=== PATIENT | female | born 1970 | race Caucasian/White ===

== ENCOUNTER → 2017-10-26 | Outpatient (CLI) | payer OTHER ==
--- NOTE | 2017-10-26 10:24 | Diagnostic Imaging Report ---
INDICATION: Routine screening. COMPARISON: 10/17/2015 and 10/11/2014. TECHNIQUE: Screening digital mammography was performed bilaterally with a Computer Aided Detection (CAD) system. FINDINGS: Both breasts are heterogeneously dense, limiting the sensitivity of mammography. No dominant mass or malignant appearing microcalcifications are seen. There is an intramammary lymph node in the upper outer left breast. The axillae are unremarkable. IMPRESSION: No mammographic features suspicious for malignancy are identified. ACR BI-RADS Category 2: Benign findings. Result letter will be mailed to the patient. Note: At least 10% of breast cancer is not imaged by mammography. Dictated by: Dictated on workstation # [id number]
== END ==
LOC: RAD 08:28
PROVIDERS: ATTEND Nurse Practitioner Family
DX: Z12.31 Encounter for screening mammogram for malignant neoplasm of breast (principal)
CPT/HCPCS: 77067

== ENCOUNTER → 2017-11-02 | Outpatient (CLI) | payer OTHER | LOC: LAB 07:00 | PROVIDERS: ATTEND Nurse Practitioner Family | DX: R94.6 Abnormal results of thyroid function studies (principal) | CPT/HCPCS: 36415; 84439 ==

== ENCOUNTER → 2018-03-04 | Outpatient (CLI) | payer OTHER ==
[2018-03-04 08:48] LABS: FREE T4 (FREE THYROXINE) 1.06 NG/DL (0.70-1.48)
== END ==
LOC: LAB 07:54
PROVIDERS: ATTEND Nurse Practitioner Family
DX: R94.6 Abnormal results of thyroid function studies (principal)
CPT/HCPCS: 36415; 84439; 84443

== ENCOUNTER → 2018-06-30 | Outpatient (CLI) | payer OTHER ==
[2018-06-30 07:45] LABS: FREE T4 (FREE THYROXINE) 0.99 NG/DL (0.70-1.48)
== END ==
LOC: LAB 07:01
PROVIDERS: ATTEND Nurse Practitioner Family
DX: E03.9 Hypothyroidism, unspecified (principal)
CPT/HCPCS: 36415; 84439; 84443

== ENCOUNTER → 2018-10-12 | Outpatient (CLI) | payer OTHER ==
[2018-10-12 11:27] LABS: FREE T4 (FREE THYROXINE) 1.25 NG/DL (0.70-1.48)
== END ==
LOC: LAB 10:36
PROVIDERS: ATTEND Nurse Practitioner Family
DX: E03.9 Hypothyroidism, unspecified (principal)
CPT/HCPCS: 36415; 84439; 84443

== ENCOUNTER → 2018-10-27 | Outpatient (CLI) | payer OTHER ==
--- NOTE | 2018-10-27 12:16 | Diagnostic Imaging Report ---
EXAMINATION: Digital mammogram bilateral screening with 3D tomosynthesis and cad. This study was compared to the prior exam of 10/26/2017, 10/17/2015 and 10/11/14. At this time there are no current complaints. The current study was also evaluated with a Computer Aided Detection (CAD) system. FINDINGS: The fibroglandular tissue in both breasts is heterogeneously dense. This does limit the sensitivity of this exam. Overall, there does not appear to have been any significant change when compared to the prior study. No primary or secondary sign of malignancy is noted. IMPRESSION: There is no radiographic evidence for malignancy. ACR BI-RADS Category 1: Negative. Result letter will be mailed to the patient. Note: At least 10% of breast cancer is not imaged by mammography. Dictated by: Dictated on workstation # [id number]
== END ==
LOC: RAD 07:57
PROVIDERS: ATTEND Nurse Practitioner Family
DX: Z12.31 Encounter for screening mammogram for malignant neoplasm of breast (principal)
CPT/HCPCS: 77067

== ENCOUNTER → 2019-06-20 | Outpatient (CLI) | payer OTHER ==
[~2019-06-20] MED LIST: AMLO5TAB9 PO; FAMO-119 PO; LEVO88TA54 PO; LISI-552 PO; METO-387 PO; METR-145 PO; NORG1TAB15 PO; OMEP20TA7 PO; Promethazine/Codeine PO; VANC50SO PO
[2019-06-20 08:52] LABS: BASOPHILS % (AUTO) 0 % (0-10); EOSINOPHILS # (AUTO) 0.2 10^3/uL (0.0-0.3); EOSINOPHILS % (AUTO) 2 % (0-10); HEMATOCRIT 39 % (35-52); HEMOGLOBIN 12.9 G/DL (11.5-16.0); LYMPHOCYTES # (AUTO) 2.9 X 10^3 (1.0-4.0); LYMPHOCYTES % (AUTO) 23 % (12-44); MEAN CORPUSCULAR HEMOGLOBIN 28 PG (25-34); MEAN CORPUSCULAR HGB CONC 33 G/DL (32-36); MEAN CORPUSCULAR VOLUME 85 FL (80-99); MEAN PLATELET VOLUME 10.7 FL (7.4-10.4); MONOCYTES # (AUTO) 0.7 X 10^3 (0.0-1.0); MONOCYTES % (AUTO) 5 % (0-12); NEUTROPHILS # (AUTO) 8.6 X 10^3 (1.8-7.8); NEUTROPHILS % (AUTO) 69 % (42-75); PLATELET COUNT 280 10^3/uL (130-400); RED CELL DISTRIBUTION WIDTH 13.4 % (10.0-14.5); WHITE BLOOD COUNT 12.3 10^3/uL (4.3-11.0)
[2019-06-20 09:22] LABS: ALANINE AMINOTRANSFERASE 25 U/L (0-55); ALBUMIN 4.5 GM/DL (3.2-4.5); ALKALINE PHOSPHATASE 107 U/L (40-136); BILIRUBIN,TOTAL 0.4 MG/DL (0.1-1.0); BUN/CREATININE RATIO 17; CALCIUM 10.7 MG/DL (8.5-10.1); CARBON DIOXIDE 25 MMOL/L (21-32); CHLORIDE 102 MMOL/L (98-107); CREATININE SERUM 0.78 MG/DL (0.60-1.30); GFR ESTIMATED > 60; GLUCOSE 87 MG/DL (70-105); POTASSIUM 3.8 MMOL/L (3.6-5.0); SODIUM 135 MMOL/L (135-145); TOTAL PROTEIN 7.7 GM/DL (6.4-8.2)
[2019-06-20 09:33] LABS: BAND NEUTROPHILS 2 %; BASOPHILS % (MANUAL) 0 %; EOSINOPHILS % (MANUAL) 2 %; LYMPHOCYTES % (MANUAL) 23 %; MONOCYTES % (MANUAL) 5 %; NEUTROPHILS % (MANUAL) 68 %; RBC MORPH NORMAL
[2019-06-20 09:43] LABS: FREE T4 (FREE THYROXINE) 0.89 NG/DL (0.70-1.48)
== END ==
LOC: LAB 08:41
PROVIDERS: ATTEND Nurse Practitioner Family
DX: E03.9 Hypothyroidism, unspecified (principal); I10 Essential (primary) hypertension; R51 Headache
CPT/HCPCS: 36415; 80053; 84439; 84443; 85007; 85027

== ENCOUNTER 2019-06-27 00:15 | Inpatient (IN) | payer OTHER ==
[~2019-06-27] VITALS: Ht 154.9 cm; Wt 75.0 kg
[2019-06-27] MEDS ORDERED: NS IV 1000 ML 1,000 ML IV SCH (00:31)
[2019-06-27] MEDS ORDERED: NS IV 500 ML 500 ML IV ONE (00:31)
--- NOTE | 2019-06-27 00:31 | ED Abdominal Pain ---
General Chief Complaint: Abdominal/GI Problems Stated Complaint: ABDOMINAL PAIN Source of Information: Patient, Spouse Exam Limitations: No Limitations History of Present Illness Date Seen by Provider: Jun 27, 2019 Time Seen by Provider: 00:19 Initial Comments Patient presents to ER by private conveyance with chief complaint last week having some mild abdominal discomfort occasional nausea but no fevers chills sweats. She began to experience some loose stools tonight after taking some laxatives because it had been 2 days since she had a bowel movement which is not unusual for her. She had a loose stool earlier in the week times one. She started having vomiting and worse pain in her life which she rates as a 6 out of 10 mid abdominal and periumbilical. Earlier in the week she had high blood pressure and felt like she had some mid back pain like a UTI so she went to Dr. Torres's office and had a urinalysis and labs performed. She said the urinalysis did not demonstrate any blood or signs of infection. Her labs are okay but they did bump her Synthroid up and also noted her calcium was marysol inally elevated. They elected to repeat it in 2 weeks. For the past 24 hours while on duty she was using Tylenol and ibuprofen to treat her abdominal pain and was successful. She's had no appetite. Her last oral intake was at 0 400 yesterday. She denies any fevers. She's had no abdominal trauma or surgeries. No other significant medical history other than she just started lisinopril earlier this week and the Synthroid. She uses Tri-Sprintec and has not missed any doses except for tonight. Allergies and Home Medications Allergies Coded Allergies: No Known Drug Allergies (Unverified , 06/27/19) Patient Home Medication List Home Medication List Reviewed: Yes Review of Systems Review of Systems Constitutional: No chills, No diaphoresis, No fever EENTM: No Blurred Vision, No Double Vision Respiratory: Denies Cough, Denies Shortness of Air Cardiovascular: Denies Chest Pain, Denies Lightheadedness, Denies Palpitations, Denies Syncope Gastrointestinal: See HPI, Abdomen Distended, Abdominal Pain; Denies Constipated; Diarrhea, Nausea, Poor Appetite, Poor Fluid Intake, Vomiting Genitourinary: Denies Burning, Denies Discharge, Denies Pain Musculoskeletal: see HPI, back pain; No joint pain Skin: No pruritus, No rash Psychiatric/Neurological: Denies Headache, Denies Numbness, Denies Paresthesia All Other Systems Reviewed Negative Unless Noted: Yes Past Mcaqitx-Imjlfq-Bhxoud Hx Patient Social History Alcohol Use: Occasionally Uses Alcohol Beverage of Choice: Beer Recreational Drug Use: No Smoking Status: Never a Smoker Recent Foreign Travel: No Contact w/Someone Who Travel: No Physical Exam Vital Signs Vital Signs - First Documented 06/27/19 00:20 Temp 36.0 Pulse 129 Resp 22 B/P (MAP) 139/108 (118) Pulse Ox 98 O2 Delivery Room Air Capillary Refill : Height/Weight/BMI Height: '" Weight: lbs. oz. kg; BMI Method: General Appearance: WD/WN, moderate distress (pained expression) HEENT: PERRL/EOMI, normal ENT inspection, pharynx normal Neck: full range of motion, normal inspection Respiratory: no respiratory distress, no accessory muscle use Cardiovascular: normal peripheral pulses, regular rate, rhythm, no edema, tachycardia Peripheral Pulses: 2+ Dorsalis Pedis (R), 2+ Left Dors-Pedis (L) Gastrointestinal: normal bowel sounds (quiescent), soft, distended (mildly); No guarding, No rebound; tenderness (epigastric), other (mildly tender all over. Negative for Rovsing sign but positive for mesenteric signs heel tap; negative for Iqbal sign or rebound tenderness over McBurney's point.) Extremities: normal range of motion, normal capillary refill Neurologic/Psychiatric: alert, oriented x 3 Skin: normal color, warm/dry Focused Exam Lactate Level 06/27/19 00:25: Lactic Acid Level 1.10 Lactic Acid Level Laboratory Tests Test 06/27/19 00:25 Lactic Acid Level 1.10 MMOL/L (0.50-2.00) Progress/Results/Core Measures Results/Orders Lab Results Laboratory Tests Test 06/27/19 00:25 06/27/19 01:25 Range/Units White Blood Count 22.6 H 4.3-11.0 10^3/uL Red Blood Count 5.69 4.35-5.85 10^6/uL Hemoglobin 16.2 #H 11.5-16.0 G/DL Hematocrit 49 35-52 % Mean Corpuscular Volume 86 80-99 FL Mean Corpuscular Hemoglobin 28 25-34 PG Mean Corpuscular Hemoglobin Concent 33 32-36 G/DL Red Cell Distribution Width 12.8 10.0-14.5 % Platelet Count 398 130-400 10^3/uL Mean Platelet Volume 10.8 H 7.4-10.4 FL Neutrophils (%) (Auto) 79 H 42-75 % Lymphocytes (%) (Auto) 14 12-44 % Monocytes (%) (Auto) 5 0-12 % Eosinophils (%) (Auto) 1 0-10 % Basophils (%) (Auto) 0 0-10 % Neutrophils # (Auto) 17.9 H 1.8-7.8 X 10^3 Lymphocytes # (Auto) 3.1 1.0-4.0 X 10^3 Monocytes # (Auto) 1.2 H 0.0-1.0 X 10^3 Eosinophils # (Auto) 0.2 0.0-0.3 10^3/uL Basophils # (Auto) 0.1 0.0-0.1 10^3/uL Neutrophils % (Manual) 78 % Lymphocytes % (Manual) 15 % Monocytes % (Manual) 4 % Band Neutrophils 3 % Microcytosis MODERATE Prothrombin Time 12.6 12.2-14.7 SEC INR Comment 0.9 0.8-1.4 Activated Partial Thromboplast Time 28 24-35 SEC Sodium Level 134 L 135-145 MMOL/L Potassium Level 4.8 3.6-5.0 MMOL/L Chloride Level 96 L 98-107 MMOL/L Carbon Dioxide Level 24 21-32 MMOL/L Anion Gap 14 5-14 MMOL/L Blood Urea Nitrogen 12 7-18 MG/DL Creatinine 0.82 0.60-1.30 MG/DL Estimat Glomerular Filtration Rate > 60 BUN/Creatinine Ratio 15 Glucose Level 119 H 70-105 MG/DL Lactic Acid Level 1.10 0.50-2.00 MMOL/L Calcium Level 9.4 8.5-10.1 MG/DL Corrected Calcium 9.2 8.5-10.1 MG/DL Total Bilirubin 0.3 0.1-1.0 MG/DL Aspartate Amino Transf (AST/SGOT) 22 5-34 U/L Alanine Aminotransferase (ALT/SGPT) 30 0-55 U/L Alkaline Phosphatase 115 40-136 U/L Troponin I < 0.30 <0.30 NG/ML Total Protein 7.8 6.4-8.2 GM/DL Albumin 4.3 3.2-4.5 GM/DL Lipase 19 8-78 U/L Serum Test, Qualitative NEGATIVE NEGATIVE Urine Color YELLOW Urine Clarity SLIGHTLY CLOUDY Urine pH 5.5 5-9 Urine Specific [place] 1.010 L 1.016-1.022 Urine Protein NEGATIVE NEGATIVE Urine Glucose (UA) NEGATIVE NEGATIVE Urine Ketones 1+ H NEGATIVE Urine Nitrite NEGATIVE NEGATIVE Urine Bilirubin 1+ H NEGATIVE Urine Urobilinogen 0.2 < = 1.0 MG/DL Urine Leukocyte Esterase NEGATIVE NEGATIVE Urine RBC (Auto) NEGATIVE NEGATIVE Urine RBC NONE /HPF Urine WBC 5-10 H /HPF Urine Squamous Epithelial Cells >50 H /HPF Urine Crystals NONE /LPF Urine Bacteria FEW H /HPF Urine Casts NONE /LPF Urine Mucus NEGATIVE /LPF Urine Culture Indicated NO My Orders Orders - CAM KOHLER Cbc With Automated Diff (06/27/19 00:31) Comprehensive Metabolic Panel (06/27/19:31) Blood Culture (06/27/19:31) Urinalysis (06/27/19:) Urine Culture (06/27/19:31) Protime With Inr (06/27/19:31) Partial Thromboplastin Time (06/27/19:31) Chest 1 View Ap/Pa Only (06/27/19:31) Ed Iv/Invasive Line Start (06/27/19:31) Ed Iv/Invasive Line Start (06/27/19:31) Ekg Tracing (06/27/19:31) Vital Signs Adult Sepsis Patie Q15M (06/27/19 00:31) Ondansetron Injection (Zofran Injectio (06/27/19 00:45) O2 (06/27/19:31) Remove Rings In Anticipation O (06/27/19:31) Lactic Acid Analyzer (06/27/19:31) Ns Iv 1000 Ml (Sodium Chloride 0.9%) (06/27/19:31) Ceftriaxone For Iv Use (Rocephin For I (06/27/19 00:45) Lipase (06/27/19 00:31) Metronidazole 500mg/100ml Ivpb (Flagyl 5 (06/27/19 00:45) Ed Iv/Invasive Line Start (06/27/19 00:31) Ns Iv 500 Ml (Sodium Chloride 0.9%) (06/27/19 00:31) Troponin I Fs (06/27/19 00:31) Ketorolac Injection (Toradol Injection) (06/27/19 00:45) Pantoprazole Injection (Protonix Injecti (06/27/19 00:45) Hcg,Qualitative Serum (06/27/19 00:34) Ct Abd/Pelv W (Appendicitis) (06/27/19 00:34) Manual Differential (06/27/19 00:25) Fentanyl Injection (Sublimaze Injection (06/27/19 01:00) Iohexol Injection (Omnipaque 350 Mg/Ml 1 (06/27/19 01:00) Received Contrast (Hold Metformin- Contr (06/27/19 01:00) Sodium Chloride Flush (Catheter Flush Sy (06/27/19 01:00) Ns (Ivpb) (Sodium Chloride 0.9% Ivpb Bag (06/27/19 01:00) Fentanyl Injection (Sublimaze Injection (06/27/19 01:00) Medications Given in ED Current Medications Medications Dose Ordered Sig/Elroy Route Start Time Stop Time Status Last Admin Dose Admin Ceftriaxone Sodium 1000 mg/ Sterile Water 10 ml @ 200 mls/hr ONCE ONCE IV 06/27/19 00:45 06/27/19 00:47 DC 06/27/19 00:54 200 MLS/HR Fentanyl Citrate 25 mcg ONCE ONCE IVP 06/27/19 01:00 06/27/19 01:02 DC 06/27/19 00:50 25 MCG Iohexol 100 ml ONCE ONCE IV 06/27/19 01:00 06/27/19 01:01 DC 06/27/19 01:12 100 ML Ketorolac Tromethamine 30 mg ONCE ONCE IVP 06/27/19 00:45 06/27/19 00:46 DC 06/27/19 00:40 30 MG Metronidazole 100 ml @ 100 mls/hr ONCE ONCE IV 06/27/19 00:45 06/27/19 01:44 DC 06/27/19 00:54 100 MLS/HR Ondansetron HCl 8 mg PRN PRN IV 06/27/19 00:45 06/27/19 00:45 DC 06/27/19 00:40 8 MG Pantoprazole 40 mg ONCE ONCE IV 06/27/19 00:45 06/27/19 00:46 DC 06/27/19 00:45 40 MG Sodium Chloride 10 ml NEEDED PRN IV 06/27/19 01:00 06/27/19 01:12 10 ML Sodium Chloride 100 ml ONCE ONCE IV 06/27/19 01:00 06/27/19 01:01 DC 06/27/19 01:12 80 ML Sodium Chloride 500 ml @ 0 mls/hr Q0M ONCE IV 06/27/19 00:31 06/27/19 00:34 DC 06/27/19 02:11 999 MLS/HR Vital Signs/I&O 06/27/19 00:20 Temp 36.0 Pulse 129 Resp 22 B/P (MAP) 139/108 (118) Pulse Ox 98 O2 Delivery Room Air Progress Progress Note : Time: 00:37 Progress Note Gastroenteritis and colitis viral versus bacterial, gastritis, pancreatitis, pyelonephritis, cholecystitis, retroflexed appendicitis, bowel obstruction etc. Zofran and Toradol initially for pain. 20 mL/kg fluid bolus of 1500 cc. Septic workup to include chest x-ray, urine and labs. Patient rates the pain 6 out of 10 but also notes among the worst pain she's ever had. Suspect she is being stoic. Less likely atypical angina given her pain is reproducible to direct palpation of the epigastrium however an EKG and troponin is warranted. Initial ECG Impression Date: Jun 27, 2019 Initial ECG Impression Time: 00:36 Initial ECG Rate: 113 Initial ECG Rhythm: S.Tach Initial ECG Intervals: Normal Initial ECG Impression: Normal Initial ECG Comparisson: No Previous ECG Available Comment Normal sinus rhythm, tachycardia. Negative for clinically relevant ST elevation or depression. Diagnostic Imaging Diagonstic Imaging: CT (with IV contrast) Plain Films/CT/US/NM/MRI: abdomen, pelvis Comments Findings to be from inflammatory infectious enteritis and differential includes Crohn's disease. Small amount of ascites. Reviewed: Reviewed [place] Study, Reviewed by Me Diagonstic Imaging: Xray Plain Films/CT/US/NM/MRI: chest (1v) Comments No acute cardiopulmonary processes noted on 1 view cxr. Reviewed: Reviewed by Me Departure Communication (Admissions) Time/Spoke to Admitting Phy: 03:00 Discussed the case lab imaging findings and the antibiotic selection's with Dr. Templeton and he agrees to admit the patient with consult general surgery in the morning. He agrees with floor placement. Impression Primary Impression: Enteritis, bacterial Additional Impression: Sepsis Qualified Codes: A41.9 - Sepsis, unspecified organism Disposition: ADMITTED INPATIENT Condition: Stable Admissions Decision to Admit Reason: Admit from ER (General) Decision to Admit/Date: Jun 27, 2019 Time/Decision to Admit Time: 02:00 Departure-Patient Inst. Referrals: ANDREA TORRES MD (PCP/Family) Primary Care Physician CAM KOHLER Jun 27, 2019 00:30 POS
[2019-06-27 00:43] LABS: HEMATOCRIT 49 % (35-52); HEMOGLOBIN 16.2 G/DL (11.5-16.0); MEAN CORPUSCULAR HEMOGLOBIN 28 PG (25-34); MEAN CORPUSCULAR HGB CONC 33 G/DL (32-36); MEAN CORPUSCULAR VOLUME 86 FL (80-99); MEAN PLATELET VOLUME 10.8 FL (7.4-10.4); NEUTROPHILS % (AUTO) 79 % (42-75); PLATELET COUNT 398 10^3/uL (130-400); RED CELL DISTRIBUTION WIDTH 12.8 % (10.0-14.5); WHITE BLOOD COUNT 22.6 10^3/uL (4.3-11.0)
[2019-06-27 00:44] LABS: BASOPHILS # (AUTO) 0.1 10^3/uL (0.0-0.1); BASOPHILS % (AUTO) 0 % (0-10); EOSINOPHILS # (AUTO) 0.2 10^3/uL (0.0-0.3); EOSINOPHILS % (AUTO) 1 % (0-10); LYMPHOCYTES # (AUTO) 3.1 X 10^3 (1.0-4.0); LYMPHOCYTES % (AUTO) 14 % (12-44); MONOCYTES # (AUTO) 1.2 X 10^3 (0.0-1.0); MONOCYTES % (AUTO) 5 % (0-12); NEUTROPHILS # (AUTO) 17.9 X 10^3 (1.8-7.8)
[2019-06-27] MEDS ORDERED: PANTOPRAZOLE 40 MG (PROTONIX) VIAL IV ONE (00:45)
[2019-06-27] MEDS ORDERED: metroNIDAZOLE 500MG/100ML IVPB 100 ML IV ONE (00:45)
[2019-06-27] MEDS ORDERED: cefTRIAXone FOR IV USE 1,000 MG in WATER (STERILE) FOR INJECTION 10 ML IV ONE (00:45)
[2019-06-27] MEDS ORDERED: ONDANSETRON 4 MG/2 ML (SDV) Z0FRAN IV PRN ×2 (00:45→05:45)
[2019-06-27] MEDS ORDERED: KETOROLAC 30 MG/ML VIAL IVP ONE (00:45)
[2019-06-27] MEDS: fentaNYL INJECTION 100 MCG/2 ML AMP IVP ONE ×2 (00:50→01:03)
[2019-06-27 00:54] LABS: INR 0.9 (0.8-1.4); PROTHROMBIN TIME PATIENT 12.6 SEC (12.2-14.7)
[2019-06-27 00:55] LABS: ALANINE AMINOTRANSFERASE 30 U/L (0-55); ALBUMIN 4.3 GM/DL (3.2-4.5); ALKALINE PHOSPHATASE 115 U/L (40-136); BILIRUBIN,TOTAL 0.3 MG/DL (0.1-1.0); BUN/CREATININE RATIO 15; CALCIUM 9.4 MG/DL (8.5-10.1); CARBON DIOXIDE 24 MMOL/L (21-32); CHLORIDE 96 MMOL/L (98-107); CREATININE SERUM 0.82 MG/DL (0.60-1.30); GFR ESTIMATED > 60; GLUCOSE 119 MG/DL (70-105); LIPASE 19 U/L (8-78); POTASSIUM 4.8 MMOL/L (3.6-5.0); SODIUM 134 MMOL/L (135-145); TOTAL PROTEIN 7.8 GM/DL (6.4-8.2)
[2019-06-27] MEDS ORDERED: CATHETER FLUSH 10 ML SYR IV PRN (01:00)
[2019-06-27] MEDS ORDERED: fentaNYL INJECTION 100 MCG/2 ML AMP IVP ONE (01:00)
[2019-06-27] MEDS ORDERED: IOHEXOL 350 MG/ML 100 ML (OMNIPAQUE 350) VIAL IV ONE (01:00)
[2019-06-27] MEDS ORDERED: HOLD METFORMIN - RECEIVED CONTRAST 20 ML VIAL IV SCH (01:00)
[2019-06-27] MEDS ORDERED: NS 100 ML (IVPB) BAG IV ONE (01:00)
[2019-06-27 01:09] LABS: BAND NEUTROPHILS 3 %; LYMPHOCYTES % (MANUAL) 15 %; MICROCYTOSIS MODERATE; MONOCYTES % (MANUAL) 4 %; NEUTROPHILS % (MANUAL) 78 %
[2019-06-27 01:39] LABS: BACTERIA,URINE FEW /HPF; CLARITY,URINE SLIGHTLY CLOUDY; COLOR,URINE YELLOW; GLUCOSE, URINE (UA) NEGATIVE (NEGATIVE); KETONES,URINE 1+ (NEGATIVE); LEUKOCYTE ESTERASE ,URINE NEGATIVE (NEGATIVE); NITRITE,URINE NEGATIVE (NEGATIVE); PH,URINE 5.5 (5-9); PROTEIN,URINE NEGATIVE (NEGATIVE); SQUAMOUS EPITHELIAL CELL,UR >50 /HPF
[2019-06-27 01:40] LABS: BILIRUBIN,URINE 1+ (NEGATIVE)
[2019-06-27 04:20] VITALS: BP 122/80
[2019-06-27 04:21] VITALS: BP 122/80
[2019-06-27] MEDS ORDERED: NS IV 1000 ML 1,000 ML ONE (04:30)
[2019-06-27] MEDS ORDERED: KETOROLAC 15 MG/ML VIAL IV PRN (05:45)
[2019-06-27] MEDS ORDERED: fentaNYL INJECTION 100 MCG/2 ML AMP IV PRN ×2 (05:45)
[2019-06-27] MEDS ORDERED: ACETAMINOPHEN 650 MG SUPP (TYLENOL) PR PRN (05:45)
--- NOTE | 2019-06-27 06:31 | Diagnostic Imaging Report ---
INDICATION: Fever, leukocytosis COMPARISON: None FINDINGS: Single view of the chest demonstrates clear lungs bilaterally. The heart is normal. There is no pneumothorax. Osseous structures are normal. IMPRESSION: Negative chest Dictated by: Dictated on workstation # [id number]
--- NOTE | 2019-06-27 06:42 | Diagnostic Imaging Report ---
PROCEDURE: CT abdomen and pelvis with contrast, rule out appendicitis. TECHNIQUE: Multiple contiguous axial images were obtained through the abdomen and pelvis after the administration of intravenous contrast. INDICATION: Abdominal pain. COMPARISON: None. FINDINGS: There are multiple small bowel loops scattered throughout the abdomen which display a thick wall and inflammatory change. There is mild diffuse abdominal ascites. No overt bowel obstruction or free air is identified. There is no abscess. The appendix is normal. The colon is unremarkable. Gallbladder, solid organs, lung bases, vascular structures, reproductive organs and urinary bladder are unremarkable. There is no lymphadenopathy. Nonspecific distention of bilateral uterine venous system is present. Osseous structures are age-appropriate. IMPRESSION: 1. Abnormal thickening of multiple loops of small bowel concerning for inflammatory bowel disease. Infectious etiology not excluded. 2. Mild diffuse abdominal ascites. 3. Normal appendix. Agree with preliminary report. Dictated by: Dictated on workstation # [id number]
[2019-06-27] MEDS: NS IV 1000 ML 1,000 ML IV SCH ×3 (06:53→20:12)
[2019-06-27] MEDS: metroNIDAZOLE 500 MG/100 ML IVPB (PRE-MIX) IV SCH ×3 (06:56→22:34)
--- NOTE | 2019-06-27 07:23 | Consultation - Surgery ---
SABRINA MORENO,MED STUDENT 06/27/19 0723: History of Present Illness History of Present Illness Patient Consulted On(marcial/time) 06/27/19 07:11 Date Seen by Provider: Jun 27, 2019 Time Seen by Provider: 06:50 History of Present Illness Patient is a 49y/o female that presented to the ER with worsening abdominal pain. Pain has been intermittent for the past week but became constant and sharp starting yesterday around 1600. Pain was described as sharp and crampy over her entire abdomen and flanks, and rated as 7/10. Right now, patient says that her pain is 2/10 but is made worse with activity. Patient also mentioned that she has had diarrhea for the past week that started at the same time as the abdominal pain. Her last menstrual cycle was reported to be about 2wks ago and described as regular, prior menstrual cycles were also described as regular. Allergies and Home Medications Allergies Coded Allergies: No Known Drug Allergies (Unverified , 06/27/19) Home Medications Levothyroxine Sodium 88 Mcg Tablet, 88 MCG PO DAILY, (Reported) Lisinopril 20 Mg Tablet, 20 MG PO DAILY, (Reported) Norgestimate-Ethinyl Estradiol 1 Each Tablet, 1 TAB PO DAILY, (Reported) Past Nocxqcz-Azdlbc-Plhjuc Hx Patient Social History Alcohol Use: Occasionally Uses Number of Drinks Today: AA Recreational Drug Use: No Smoking Status: Former Smoker Former Smoker, Quit: Jul 19, 2008 Type Used: Cigarettes Recent Foreign Travel: No Contact w/Someone Who Travel: No Recent Infectious Disease Expo: No Physical Abuse Screen: No Sexual Abuse: No Immunizations Up To Date Date of Influenza Vaccine: Apr 27, 2019 Seasonal Allergies Seasonal Allergies: No Surgeries History of Surgeries: No Respiratory History of Respiratory Disorde: No Cardiovascular History of Cardiac Disorders: Yes Cardiac Disorders: Hypertension (diagnosised early this week ) Neurological History of Neurological Disord: No Genitourinary History of Genitourinary Disor: No Gastrointestinal History of Gastrointestinal Di: No Musculoskeletal History of Musculoskeletal Dis: No Endocrine History of Endocrine Disorders: Yes Endocrine Disorders: Hypothyroidsim HEENT History of HEENT Disorders: No Cancer History of Cancer: No Psychosocial History of Psychiatric Problem: No Integumentary History of Skin or Integumenta: No Family Medical History Family Medial History: Hypercholesterolemia 19 FATHER 19 MOTHER Hypertension 19 FATHER 19 MOTHER Neoplasm 19 FATHER (melanoma ) Respiratory disorder 19 MOTHER (COPD emphysema ) Review of Systems-General Constitutional: No chills, No dizziness, No fever; malaise Respiratory: cough (for >2wks), phlegm, wheezing Cardiovascular: No chest pain, No edema, No Hx of Intervention Gastrointestinal: abdominal pain (generalized); No constipation; diarrhea, nausea; No vomiting Genitourinary: No decreased output, No discharge, No dysuria : No LMP: Jun 15, 2019 Physical Exam-General Problems Physical Exam Vital Signs Vital Signs - First Documented 06/27/19 00:20 Temp 36.0 Pulse 129 Resp 22 B/P (MAP) 139/108 (118) Pulse Ox 98 O2 Delivery Room Air Capillary Refill : Less Than 3 Seconds General Appearance: WD/WN, no apparent distress Eyes: Bilateral Eye PERRL, Bilateral Eye EOMI Neck: non-tender, supple Respiratory: chest non-tender, lungs clear, normal breath sounds, no resp iratory distress, no accessory muscle use Cardiovascular: regular rate, rhythm, no edema, no murmur Peripheral Pulses: 2+ Dorsalis Pedis (R), 2+ Left Dors-Pedis (L), 2+ Radial Pulses (R), 2+ Radial Pulses (L) Gastrointestinal: soft, no pulsatile mass, guarding, tenderness (Left worse then right ) Extremities: no pedal edema, no calf tenderness, normal capillary refill Neurologic/Psychiatric: alert, normal mood/affect, oriented x 3 Skin: normal color, warm/dry Data Review Labs Laboratory Tests 06/27/19 00:25: White Blood Count 22.6H, Red Blood Count 5.69, Hemoglobin 16.2#H, Hematocrit 49, Mean Corpuscular Volume 86, Mean Corpuscular Hemoglobin 28, Mean Corpuscular Hemoglobin Concent 33, Red Cell Distribution Width 12.8, Platelet Count 398, Mean Platelet Volume 10.8H, Neutrophils (%) (Auto) 79H, Lymphocytes (%) (Auto) 14, Monocytes (%) (Auto) 5, Eosinophils (%) (Auto) 1, Basophils (%) (Auto) 0, Neutrophils # (Auto) 17.9H, Lymphocytes # (Auto) 3.1, Monocytes # (Auto) 1.2H, Eosinophils # (Auto) 0.2, Basophils # (Auto) 0.1, Neutrophils % (Manual) 78, Lymphocytes % (Manual) 15, Monocytes % (Manual) 4, Band Neutrophils 3, Microcytosis MODERATE, Prothrombin Time 12.6, INR Comment 0.9, Activated Partial Thromboplast Time 28, Sodium Level 134L, Potassium Level 4.8, Chloride Level 96L , Carbon Dioxide Level 24, Anion Gap 14, Blood Urea Nitrogen 12, Creatinine 0.82, Estimat Glomerular Filtration Rate > 60, BUN/Creatinine Ratio 15, Glucose Level 119H, Lactic Acid Level 1.10, Calcium Level 9.4, Corrected Calcium 9.2, Total Bilirubin 0.3, Aspartate Amino Transf (AST/SGOT) 22, Alanine Aminotransferase (ALT/SGPT) 30, Alkaline Phosphatase 115, Troponin I < 0.30, Total Protein 7.8, Albumin 4.3, Lipase 19, Serum Test, Qualitative NEGATIVE 06/27/19 01:25: Urine Color YELLOW, Urine Clarity SLIGHTLY CLOUDY, Urine pH 5.5, Urine Specific [place] 1.010L, Urine Protein NEGATIVE, Urine Glucose (UA) NEGATIVE, Urine Ketones 1+H, Urine Nitrite NEGATIVE, Urine Bilirubin 1+H, Urine Urobilinogen 0.2, Urine Leukocyte Esterase NEGATIVE, Urine RBC (Auto) NEGATIVE, Urine RBC NONE, Urine WBC 5-10H, Urine Squamous Epithelial Cells >50H, Urine Crystals NONE, Urine Bacteria FEWH, Urine Casts NONE, Urine Mucus NEGATIVE, Urine Culture Indicated NO Assessment/Plan Assessment/Plan Assessment/Plan Abdominal pain leukocytosis elevated hbg CT of abdomen shows signs of inflammatory bowel disease and mild ascites but no signs of appendicitis, consider doing and EGD and colonoscopy in an outpatient setting. Continue Rocephin and metronidazole and IVF fluids. Patient's hemoglobin is elevated, but likely d/t to dehydration, will continue to monitor. Will continue to monitor and follow patient while in hospital Clinical Quality Measures DVT/VTE Risk/Contraindication: Risk Factor Score Per Nursin RFS Level Per Nursing on Admit: 4+=Very High VINCE MENDOZA DO 06/27/19 1174: History of Present Illness History of Present Illness Time Seen by Provider: 15:06 History of Present Illness Surgery asked to consult regarding Abdominal pain and possible enteritis. When I spoke to the pt this afternoon she stated that she had some abdominal pain last Thursday (8 days ago) which was gone on Thursday but then she had really bad diarrhea start after eating out for lunche (had a salad). Diarrhea every day but only had one episode yesterday and nothing so far today. She has never had any pain like this before. She denied any hematochezia or melena, did not get stool studies as an outpt. Allergies and Home Medications Allergies Coded Allergies: No Known Drug Allergies (Unverified , 06/27/19) Home Medications Levothyroxine Sodium 88 Mcg Tablet, 88 MCG PO DAILY, (Reported) Lisinopril 20 Mg Tablet, 20 MG PO DAILY, (Reported) Norgestimate-Ethinyl Estradiol 1 Each Tablet, 1 TAB PO DAILY, (Reported) Patient Home Medication List Home Medication List Reviewed: Yes Past Xeylbah-Dlcaow-Vmovhw Hx Surgeries History of Surgeries: No Respiratory History of Respiratory Disorde: No Cardiovascular History of Cardiac Disorders: Yes Neurological History of Neurological Disord: No Reproductive System : No Genitourinary History of Genitourinary Disor: No Gastrointestinal History of Gastrointestinal Di: No Musculoskeletal History of Musculoskeletal Dis: No Endocrine History of Endocrine Disorders: Yes HEENT History of HEENT Disorders: No Loss of Vision: Denies Hearing Impairment: Denies Cancer History of Cancer: No Psychosocial History of Psychiatric Problem: No Family Medical History Significant Family History: Cancer, Hypertension Family Medial History: Hypercholesterolemia 19 FATHER 19 MOTHER Hypertension 19 FATHER 19 MOTHER Neoplasm 19 FATHER (melanoma ) Respiratory disorder 19 MOTHER (COPD emphysema ) Review of Systems-General EENTM: No blurred vision, No double vision, No mouth pain, No mouth swelling, No epistaxis Musculoskeletal: No back pain, No joint pain, No muscle stiffness Skin: No change in color, No change in hair/nails Psychiatric/Neurological: Denies Anxiety, Denies Depressed, Denies Seizure, Denies Tremors Other pt denies any hx of abnormal bleeding or bruising Physical Exam-General Problems Physical Exam HEENT: pharynx normal; No scleral icterus (R), No scleral icterus (L) Gastrointestinal: soft, no organomegaly, no pulsatile mass; No guarding; tenderness (Left worse then right ) Back: no CVA tenderness, no vertebral tenderness Lymphatic: no adenopathy (neck, axilla or groin) Assessment/Plan Assessment/Plan Assessment/Plan Enteritis Diarrhea Pt had elevated WBC that came down with fluids and CT showed large area of small intestine that was thickened with some minimal inflammation around the intestine. I believe this is most likely going to be a Viral Gastroenteritis, but need to try and rule out bacterial with stool culture. Unable to visualize this area with either EGD or Colonoscopy; however, if celiac or an IBD need to be ruled out these can be done as an outpt. I agree pt should be kept one more day to treat with IV fluids and control any other symptoms she has. Supervisory-Addendum Brief Verification & Attestation Participated in pt care: history, MDM, physical Personally performed: exam, history, MDM Care discussed with: Medical Student Procedures: n/a Verification and Attestation of Medical Student E/M Service A medical student performed and documented this service in my presence. I reviewed and verified all information documented by the medical student and made modifications to such information, when appropriate. I personally performed the physical exam and medical decision making. Vince Mendoza, Jun 27, 2019,17:32 SABRINA MORENO,MED STUDENT Jun 27, 2019 07:23 VINCE WEI DO Jun 27, 2019 17:27 POS
[2019-06-27 08:17] VITALS: BP 103/70
[2019-06-27] MEDS: PANTOPRAZOLE 40 MG (PROTONIX) VIAL IV SCH (08:24)
[2019-06-27] MEDS ORDERED: LISI-552 PO (08:36)
[2019-06-27] MEDS ORDERED: NORG1TAB15 PO (08:36)
[2019-06-27] MEDS ORDERED: LEVO88TA54 PO (08:36)
--- NOTE | 2019-06-27 08:39 | History & Physical ---
History of Present Illness History of Present Illness Reason for visit/HPI PT IS A 49 Y/O FEMALE WHO IS KNOWN TO ME FROM CLINIC. SHE HAS REPORTED ABOUT A WEEK OF INTERMITTENT ABDOMINAL PAIN AND ISSUES WITH NORMALCY OF BOWEL MOVEMENT. SHE REPORTS THAT SHE STARTED TO HAVE DIARRHEA EARLIER IN THE WEEK AND IT WAS BECOMING PROGRESSIVELY WORSE AND THEN SHE HAD SEVERE ABDOMINAL PAIN, NAUSEA, DIARRHEA AND SHE PRESENTED TO THE HOSPITAL DUE TO THE ESCALATION OF HER ABDOM INAL PAIN. SHE WAS FOUND TO HAVE ACUTE LEUKOCYTOSIS WITH INFLAMMATION OF HER BOWEL AND WAS THEREFORE ADMITTED TO THE HOSPITAL FOR IV ANTIBIOTICS, IV FLUIDS AND MONITORING OF SYMPTOMS WITH CONSULTATION TO GENERAL SURGERY. Date of Admission Jun 27, 2019 at 03:07 Date Seen by a Provider: Jun 27, 2019 Time Seen by a Provider: 09:00 I consulted on this patient on 06/27/19 0900 Attending Physician ANDREA TORRES MD Admitting Physician Andrea Torres MD Consult GENERAL SURGERY Allergies and Home Medications Allergies Coded Allergies: No Known Drug Allergies (Unverified , 06/27/19) Home Medications Levothyroxine Sodium 88 Mcg Tablet, 88 MCG PO DAILY, (Reported) Lisinopril 20 Mg Tablet, 20 MG PO DAILY, (Reported) Norgestimate-Ethinyl Estradiol 1 Each Tablet, 1 TAB PO DAILY, (Reported) Patient Home Medication List Home Medication List Reviewed: Yes Past Uuxwhdw-Nvjdig-Kywgjf Hx Past Med/Social Hx: Reviewed Nursing Past Med/Soc Hx, Reviewed and Corrections made Patient Social History Marrital Status: Living Status: LIVES IN HOUSE WITH FAMILY 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[employer]) Alcohol Use: Occasionally Uses Number of Drinks Today: AA Alcohol Beverage of Choice: Beer Recreational Drug Use: No Smoking Status: Former Smoker Former Smoker, Quit: Jul 19, 2008 Type Used: Cigarettes 2nd Hand Smoke Exposure: No Physical Abuse Screen: No Sexual Abuse: No Recent Foreign Travel: No Contact w/other who traveled: No Recent Hopitalizations: No Recent Infectious Disease Expo: No Immunizations Up To Date Date of Influenza Vaccine: Apr 27, 2019 Seasonal Allergies Seasonal Allergies: No Past Medical History Currently Using CPAP: No Currently Using BIPAP: No Cardiac: Hypertension (diagnosised early this week ) : No Reproductive: No Sexually Transmitted Disease: No HIV/AIDS: No Female Reproductive Disorders: Denies Gastrointestinal: Chronic Constipation (INTERMITTENT) Endocrine: Hypothyroidsim Are Your Blood Sugars Over 250: No Loss of Vision: Denies Hearing Impairment: Denies Psychosocial: Anxiety, Depression History of Blood Disorders: No Adverse Reaction to Blood Pérez: No Family History Reviewed Nursing Family Hx Hypercholesterolemia 19 FATHER 19 MOTHER Hypertension 19 FATHER 19 MOTHER Neoplasm 19 FATHER (melanoma ) Respiratory disorder 19 MOTHER (COPD emphysema ) Cancer, COPD, Hypertension, Other Conditions/Hx Review of Systems Constitutional: No chills, No fever; malaise, weakness EENTM: No hoarseness, No throat pain Respiratory: No cough, No dyspnea on exertion, No short of breath Cardiovascular: No chest pain, No palpitations Gastrointestinal: RUQ, LUQ, RLQ, LLQ, abdominal pain, diarrhea, nausea Genitourinary: no symptoms reported : No Musculoskeletal: No back pain, No muscle weakness Skin: no symptoms reported Psychiatric/Neurological: Denies Anxiety, Denies Depressed, Denies Weakness All Other Systems Reviewed Negative Unless Noted: Yes Physical Exam Vital Signs Vital Signs - First Documented 06/27/19 00:20 Temp 36.0 Pulse 129 Resp 22 B/P (MAP) 139/108 (118) Pulse Ox 98 O2 Delivery Room Air Capillary Refill : Less Than 3 Seconds Height, Weight, BMI Height: '" Weight: lbs. oz. kg; 31.25 BMI Method: General Appearance: WD/WN, Mild Distress (WHEN LYING ON BACK WITH ABD BEING PALPATED) Eyes: Bilateral Eye Normal Inspection, Bilateral Eye PERRL, Bilateral Eye EOMI HEENT: PERRL/EOMI, Pharynx Normal Neck: Full Range of Motion, Non Tender, Supple Respiratory: Chest Non Tender, Lungs Clear, Normal Breath Sounds, No Accessory Muscle Use, No Respiratory Distress Cardiovascular: Regular Rate, Rhythm, No Edema, Normal Peripheral Pulses Gastrointestinal: No Pulsatile Mass, Soft, Tenderness (DIFFUSELY), Other (HYPERACTIVE BOWEL SOUNDS) Rectal: Deferred Back: Normal Inspection, No CVA Tenderness, No Vertebral Tenderness Extremity: Normal Capillary Refill, Normal Range of Motion, Non Tender, No Calf Tenderness, No Pedal Edema Neurologic/Psychiatric: Alert, Oriented x3, No Motor/Sensory Deficits, Normal Mood/Affect, seed tester II-XII Norm as Tested Skin: Normal Color, Warm/Dry Lymphatic: No Adenopathy Assessment/Plan Assessment and Plan ABDOMINAL PAIN DIARRHEA NAUSEA INFECTIOUS VERSUS INFLAMMATORY BOWEL DISEASE LEUKOCYTOSIS HYPERTENSION ABDOMINAL PAIN WITH INFECTIOUS VERSUS INFLAMMATORY BOWEL DISEASE - CT SCAN RESULTS FOLLOWS: IMPRESSION: 1. Abnormal thickening of multiple loops of small bowel concerning for inflammatory bowel disease. Infectious etiology not excluded. 2. Mild diffuse abdominal ascites. 3. Normal appendix. - CONTINUE WITH IV ANTIBIOTICS - WILL ALLOW PT TO HAVE ICE CHIPS FOR SUPPER - APPRECIATE SURGICAL CONSULT. - ANTICIPATE PT WILL NEED COLONOSCOPY AN OUTPATIENT - PREFERABLY IN JULY 2019. LEUKOCYTOSIS - REPEAT LABS IN THE MORNING - CONTINUE WITH IV ANTIBIOTICS HYPERTENSION - BP STABLE RIGHT NOW, WILL MONITOR PRESSURES AND IF NEEDED WILL RESTART LISINOPRIL Admission Diagnosis ABDOMINAL PAIN DIARRHEA NAUSEA INFECTIOUS VERSUS INFLAMMATORY BOWEL DISEASE LEUKOCYTOSIS HYPERTENSION Admission Status: Inpatient Order (span 2 midnights) Reason for Inpatient Admission: INPATIENT ADMISSION FOR ENTERITIS, ABDOMINAL PAIN, NAUSEA, LEUKOCYTOSIS - AND WILL NEED IV FLUIDS AND ANTIBIOTICS. Clinical Quality Measures DVT/VTE Risk/Contraindication: Risk Factor Score Per Nursin RFS Level Per Nursing on Admit: 4+=Very High ANDREA TORRES MD Jun 27, 2019 08:39 POS
[2019-06-27 12:05] LABS: BASOPHILS % (AUTO) 0 % (0-10); EOSINOPHILS # (AUTO) 0.2 10^3/uL (0.0-0.3); EOSINOPHILS % (AUTO) 2 % (0-10); HEMATOCRIT 36 % (35-52); HEMOGLOBIN 11.7 G/DL (11.5-16.0); LYMPHOCYTES # (AUTO) 2.4 X 10^3 (1.0-4.0); LYMPHOCYTES % (AUTO) 22 % (12-44); MEAN CORPUSCULAR HEMOGLOBIN 28 PG (25-34); MEAN CORPUSCULAR HGB CONC 33 G/DL (32-36); MEAN CORPUSCULAR VOLUME 85 FL (80-99); MEAN PLATELET VOLUME 10.5 FL (7.4-10.4); MONOCYTES # (AUTO) 0.9 X 10^3 (0.0-1.0); MONOCYTES % (AUTO) 9 % (0-12); NEUTROPHILS # (AUTO) 7.1 X 10^3 (1.8-7.8); NEUTROPHILS % (AUTO) 67 % (42-75); PLATELET COUNT 287 10^3/uL (130-400); RED CELL DISTRIBUTION WIDTH 13.3 % (10.0-14.5); WHITE BLOOD COUNT 10.6 10^3/uL (4.3-11.0)
[2019-06-27 12:21] VITALS: BP 113/97
[2019-06-27 12:26] LABS: ALANINE AMINOTRANSFERASE 24 U/L (0-55); ALBUMIN 3.5 GM/DL (3.2-4.5); ALKALINE PHOSPHATASE 78 U/L (40-136); BILIRUBIN,TOTAL 0.3 MG/DL (0.1-1.0); BUN/CREATININE RATIO 13; CALCIUM 7.6 MG/DL (8.5-10.1); CARBON DIOXIDE 22 MMOL/L (21-32); CHLORIDE 108 MMOL/L (98-107); CREATININE SERUM 0.79 MG/DL (0.60-1.30); GFR ESTIMATED > 60; GLUCOSE 77 MG/DL (70-105); POTASSIUM 4.3 MMOL/L (3.6-5.0); SODIUM 138 MMOL/L (135-145); TOTAL PROTEIN 5.8 GM/DL (6.4-8.2)
[2019-06-27 16:19] VITALS: BP 121/81
[2019-06-27] MEDS ORDERED: cefTRIAXone 1,000 MG/SWFI 10 ML IV PUSH IV SCH ×2 (21:00)
[2019-06-27 21:02] VITALS: BP 146/90
[2019-06-28 00:18] VITALS: BP 126/82
[2019-06-28] MEDS: NS IV 1000 ML 1,000 ML IV SCH (03:36)
[2019-06-28 03:37] LABS: BASOPHILS % (AUTO) 0 % (0-10); EOSINOPHILS # (AUTO) 0.2 10^3/uL (0.0-0.3); EOSINOPHILS % (AUTO) 2 % (0-10); HEMATOCRIT 36 % (35-52); HEMOGLOBIN 11.7 G/DL (11.5-16.0); LYMPHOCYTES # (AUTO) 2.5 X 10^3 (1.0-4.0); LYMPHOCYTES % (AUTO) 25 % (12-44); MEAN CORPUSCULAR HEMOGLOBIN 28 PG (25-34); MEAN CORPUSCULAR HGB CONC 33 G/DL (32-36); MEAN CORPUSCULAR VOLUME 86 FL (80-99); MEAN PLATELET VOLUME 10.9 FL (7.4-10.4); MONOCYTES # (AUTO) 0.6 X 10^3 (0.0-1.0); MONOCYTES % (AUTO) 6 % (0-12); NEUTROPHILS # (AUTO) 6.9 X 10^3 (1.8-7.8); NEUTROPHILS % (AUTO) 68 % (42-75); PLATELET COUNT 261 10^3/uL (130-400); RED CELL DISTRIBUTION WIDTH 12.7 % (10.0-14.5); WHITE BLOOD COUNT 10.2 10^3/uL (4.3-11.0)
[2019-06-28 03:54] LABS: ALANINE AMINOTRANSFERASE 27 U/L (0-55); ALBUMIN 3.6 GM/DL (3.2-4.5); ALKALINE PHOSPHATASE 87 U/L (40-136); BILIRUBIN,TOTAL 0.2 MG/DL (0.1-1.0); BUN/CREATININE RATIO 10; CALCIUM 7.6 MG/DL (8.5-10.1); CARBON DIOXIDE 17 MMOL/L (21-32); CHLORIDE 107 MMOL/L (98-107); CREATININE SERUM 0.63 MG/DL (0.60-1.30); GFR ESTIMATED > 60; POTASSIUM 3.9 MMOL/L (3.6-5.0); SODIUM 137 MMOL/L (135-145); TOTAL PROTEIN 6.1 GM/DL (6.4-8.2)
[2019-06-28 03:55] LABS: GLUCOSE 59 MG/DL (70-105)
[2019-06-28 04:00] VITALS: BP 142/90
[2019-06-28] MEDS ORDERED: DEXTROSE 50% 50 ML (IMS) SYR ONE (04:03)
[2019-06-28] MEDS ORDERED: DEXTROSE 50% 50 ML (IMS) SYR IV ONE (04:15)
[2019-06-28] MEDS: metroNIDAZOLE 500 MG/100 ML IVPB (PRE-MIX) IV SCH (06:02)
--- NOTE | 2019-06-28 07:20 | NUR ---
CALLED DR. HUSSEIN AND INFORMED HER THAT PATIENT'S BLOOD SUGAR WAS 59 WITH MORNING LABS AND THAT UNDER HYPOGLYCEMIC PROTOCOL 25MG D50 AND BLOOD SUGAR INCREASED TO 114. ALSO INFORMED HER THAT BLOOD PRESSURE WAS 140/90. RECEIVED ORDERS TO ADVANCE DIET TO CLEAR LIQUIDS AND CHANGE FLUIDS TO D5NS AT 100ML/HR.
[2019-06-28] MEDS ORDERED: D5 NS 1000 ML IV SOLUTION 1,000 ML IV SCH (07:30)
--- NOTE | 2019-06-28 07:54 | Progress Note - Surgery ---
SABRINA MORENO,MED STUDENT 06/28/19 0754: Subjective Date Seen by a Provider: Jun 28, 2019 Time Seen by a Provider: 07:00 Subjective/Events-last exam Patient seen and examined. She says that she is feeling better now and denies having any abdominal pain at this time and feels ready to go home. She also stated that she feels more hydrated and has been voiding a lot. Review of Systems General: No Chills, No Fatigue Pulmonary: No Dyspnea, No Cough Cardiovascular: No: Chest Pain, Palpitations Gastrointestinal: Diarrhea; No: Nausea, Vomiting, Abdominal Pain, Constipation Genitourinary: No Dysuria Focused Exam Lactate Level 06/27/19 00:25: Lactic Acid Level 1.10 Objective Exam Vital Signs Date Time Temp Pulse Resp B/P (MAP) Pulse Ox O2 Delivery O2 Flow Rate FiO2 06/28/19 04:00 36.8 82 18 142/90 (107) 96 Room Air 06/28/19 00:18 36.6 97 20 126/82 (97) 98 Room Air 06/27/19 21:02 36.4 84 20 146/90 (108) 99 Room Air 06/27/19 20:30 Room Air 06/27/19 16:19 36.2 92 20 121/81 (94) 97 Room Air 06/27/19 12:21 36.4 90 18 113/97 (102) 97 Room Air 06/27/19 08:17 36.5 88 18 103/70 (81) 96 Room Air 06/27/19 08:00 Room Air I & O 06/28/19 07:00 Intake Total 2075 ml Output Total 2900 ml Balance -825 ml Capillary Refill : Less Than 3 Seconds General Appearance: No Apparent Distress, WD/WN HEENT: PERRL/EOMI Neck: Non Tender, Supple Respiratory: Chest Non Tender, Lungs Clear, Normal Breath Sounds, No Accessory Muscle Use, No Respiratory Distress Cardiovascular: Regular Rate, Rhythm, No Edema, Normal Peripheral Pulses Peripheral Pulses: 2+ Dorsalis Pedis (R), 2+ Left Dors-Pedis (L), 2+ Radial Pulses (R), 2+ Radial Pulses (L) Gastrointestinal: non tender, soft, no organomegaly, no pulsatile mass Extremity: Non Tender, No Calf Tenderness, No Pedal Edema Neurologic/Psychiatric: Alert, Oriented x3, Normal Mood/Affect Skin: Normal Color, Warm/Dry Results Lab Laboratory Tests 06/27/19 11:55: White Blood Count 10.6, Red Blood Count 4.19L, Hemoglobin 11.7#, Hematocrit 36, Mean Corpuscular Volume 85, Mean Corpuscular Hemoglobin 28, Mean Corpuscular Hemoglobin Concent 33, Red Cell Distribution Width 13.3, Platelet Count 287, Mean Platelet Volume 10.5H, Neutrophils (%) (Auto) 67, Lymphocytes (%) (Auto) 22, Monocytes (%) (Auto) 9, Eosinophils (%) (Auto) 2, Basophils (%) (Auto) 0, Neutrophils # (Auto) 7.1, Lymphocytes # (Auto) 2.4, Monocytes # (Auto) 0.9, Eosinophils # (Auto) 0.2, Basophils # (Auto) 0.0, Sodium Level 138, Potassium Level 4.3, Chloride Level 108H, Carbon Dioxide Level 22, Anion Gap 8, Blood Urea Nitrogen 10, Creatinine 0.79, Estimat Glomerular Filtration Rate > 60, BUN/Creatinine Ratio 13, Glucose Level 77, Calcium Level 7.6L, Corrected Calcium 8.0L, Total Bilirubin 0.3, Aspartate Amino Transf (AST/SGOT) 18, Alanine Aminotransferase (ALT/SGPT) 24, Alkaline Phosphatase 78, Total Protein 5.8L, Albumin 3.5 06/28/19 03:34: White Blood Count 10.2, Red Blood Count 4.17L, Hemoglobin 11.7, Hematocrit 36, Mean Corpuscular Volume 86, Mean Corpuscular Hemoglobin 28, Mean Corpuscular Hemoglobin Concent 33, Red Cell Distribution Width 12.7, Platelet Count 261, Mean Platelet Volume 10.9H, Neutrophils (%) (Auto) 68, Lymphocytes (%) (Auto) 25, Monocytes (%) (Auto) 6, Eosinophils (%) (Auto) 2, Basophils (%) (Auto) 0, Neutrophils # (Auto) 6.9, Lymphocytes # (Auto) 2.5, Monocytes # (Auto) 0.6, Eosinophils # (Auto) 0.2, Basophils # (Auto) 0.0, Sodium Level 137, Potassium L evel 3.9, Chloride Level 107, Carbon Dioxide Level 17L, Anion Gap 13, Blood Urea Nitrogen 6L, Creatinine 0.63, Estimat Glomerular Filtration Rate > 60, BUN/Creatinine Ratio 10, Glucose Level 59*L, Calcium Level 7.6L, Corrected Calcium 7.9L, Total Bilirubin 0.2, Aspartate Amino Transf (AST/SGOT) 19, Alanine Aminotransferase (ALT/SGPT) 27, Alkaline Phosphatase 87, Total Protein 6.1L, A lbumin 3.6 06/28/19 05:00: Glucometer 114H Assessment/Plan Assessment/Plan Assessment/Plan Enteritis Diarrhea Patient's leukocytosis has resolved, but she had 1 episode of loose stool yesterday. Stool quantity was too small to do a test, so no stool test was preformed. No surgical interventions appear to be need at this time, but will continue to monitor patient. Clinical Quality Measures DVT/VTE Risk/Contraindication: Risk Factor Score Per Nursin RFS Level Per Nursing on Admit: 4+=Very High VINCE MENDOZA DO 06/28/19 1636: Subjective Time Seen by a Provider: 08:47 Subjective/Events-last exam Pt seen and examined, denies abdominal pain. Had one small BM, but according to lab not enough to get sample to run for culture. Review of Systems Pulmonary: No Dyspnea, No Cough Cardiovascular: No: Chest Pain, Palpitations Gastrointestinal: No: Nausea, Vomiting, Abdominal Pain Objective Exam General Appearance: No Apparent Distress, WD/WN Respiratory: Lungs Clear, Normal Breath Sounds Cardiovascular: Regular Rate, Rhythm, No Murmur Gastrointestinal: non tender, soft, no organomegaly Assessment/Plan Assessment/Plan Assessment/Plan I doubt pt has an IBD, most likely this was a viral gastroenteritis. It could be infectious, but unfortunately we could not get a good sample and she has started on ABX. Still, if she begins having diarrhea she should obtain a sample. She can also follow up in my office if abdominal pain returns or she has any questions or problems. Supervisory-Addendum Brief Verification & Attestation Participated in pt care: history, MDM, physical Personally performed: exam, history, MDM Care discussed with: Medical Student Procedures: n/a Verification and Attestation of Medical Student E/M Service A medical student performed and documented this service in my presence. I reviewed and verified all information documented by the medical student and made modifications to such information, when appropriate. I personally performed the physical exam and medical decision making. Vince Mendoza, Jun 28, 2019,16:37 SABRINA MORENO,MED STUDENT Jun 28, 2019 07:54 VINCE WEI DO Jun 28, 2019 16:36 POS
[2019-06-28 08:00] VITALS: BP 138/87
[2019-06-28] MEDS: PANTOPRAZOLE 40 MG (PROTONIX) VIAL IV SCH (08:10)
--- NOTE | 2019-06-28 08:49 | Discharge Summary ---
Diagnosis/Chief Complaint Date of Admission Jun 27, 2019 at 03:07 Date of Discharge Discharge Date: Jun 28, 2019 Discharge Time: 11:30 Admission Diagnosis Admission Diagnosis ABDOMINAL PAIN DIARRHEA NAUSEA INFECTIOUS VERSUS INFLAMMATORY BOWEL DISEASE LEUKOCYTOSIS HYPERTENSION Discharge Diagnosis ABDOMINAL PAIN DIARRHEA NAUSEA INFECTIOUS VERSUS INFLAMMATORY BOWEL DISEASE LEUKOCYTOSIS HYPERTENSION Reason Hospital Visit PT IS A 49 Y/O FEMALE WHO IS KNOWN TO ME FROM CLINIC. SHE HAS REPORTED ABOUT A WEEK OF INTERMITTENT ABDOMINAL PAIN AND ISSUES WITH NORMALCY OF BOWEL MOVEMENT. SHE REPORTS THAT SHE STARTED TO HAVE DIARRHEA EARLIER IN THE WEEK AND IT WAS BECOMING PROGRESSIVELY WORSE AND THEN SHE HAD SEVERE ABDOMINAL PAIN, NAUSEA, DIARRHEA AND SHE PRESENTED TO THE HOSPITAL DUE TO THE ESCALATION OF HER ABDOMINAL PAIN. SHE WAS FOUND TO HAVE ACUTE LEUKOCYTOSIS WITH INFLAMMATION OF HER BOWEL AND WAS THEREFORE ADMITTED TO THE HOSPITAL FOR IV ANTIBIOTICS, IV FLUIDS AND MONITORING OF SYMPTOMS WITH CONSULTATION TO GENERAL SURGERY. Discharge Summary Consultations SURGERY Discharge Physical Examination Allergies: Coded Allergies: No Known Drug Allergies (Unverified , 06/27/19) Vitals & I&Os Vital Signs Date Time Temp Pulse Resp B/P (MAP) Pulse Ox O2 Delivery O2 Flow Rate FiO2 06/28/19 04:00 36.8 82 18 142/90 (107) 96 Room Air General Appearance: Alert, Oriented X3, Cooperative, No Acute Distress HEENT: Atraumatic, PERRLA, Mucous Memb Moist/[place] Respiratory: Clear to Auscultation, Normal Air Movement Cardiovascular: Regular Rate Abdominal: Normal Bowel Sounds, Soft, No Tenderness Extremities: No Clubbing, No Cyanosis Skin: No Rashes, No Breakdown Neuro: Normal Speech, Strength at 5/5 X4 Ext, Cranial Nerves 3-12 NL Psych/Mental Status: Mental Status NL, Mood NL Hospital Course Was the Problem List Reviewed?: Yes ABDOMINAL PAIN DIARRHEA NAUSEA INFECTIOUS VERSUS INFLAMMATORY BOWEL DISEASE LEUKOCYTOSIS HYPERTENSION ABDOMINAL PAIN WITH INFECTIOUS VERSUS INFLAMMATORY BOWEL DISEASE - CT SCAN RESULTS FOLLOWS: IMPRESSION: 1. Abnormal thickening of multiple loops of small bowel concerning for inflammatory bowel disease. Infectious etiology not excluded. 2. Mild diffuse abdominal ascites. 3. Normal appendix. - CONTINUED WITH IV ANTIBIOTICS FOR 24 HOURS - ICE CHIPS TOLERATED, AND MORNING CLEAR DIET TOLERATED WITHOUT INCREASE IN ABDOMINAL PAIN -ADVANCE DIET TOLERATED OUTPATIENT - APPRECIATE SURGICAL CONSULT. - ANTICIPATE PT WILL NEED COLONOSCOPY AN OUTPATIENT - PREFERABLY IN JULY 2019. LEUKOCYTOSIS - RESOLVED HYPERTENSION - BP STABLE RIGHT NOW, WILL MONITOR PRESSURES AND IF NEEDED WILL RESTART LISINOPRIL DISCHARGE PATIENT TO HOME WITH ORAL FLAGYL X 5 DAYS, OMEPRAZOLE X 30 DAYS CONTINUE WITH LISINOPRIL OUTPATIENT, WILL NEED 1 WK FOLLOW UP AND PT WILL LET US KNOW WHICH SURGEON SHE WOULD LIKE TO SEE AN OUTPATIENT IN JULY FOR THE COLONOSCOPY. Pending Labs Laboratory Tests 06/28/19 03:34: White Blood Count 10.2, Red Blood Count 4.17, Hemoglobin 11.7, Hematocrit 36, Me an Corpuscular Volume 86, Mean Corpuscular Hemoglobin 28, Mean Corpuscular Hemoglobin Concent 33, Red Cell Distribution Width 12.7, Platelet Count 261, Mean Platelet Volume 10.9, Neutrophils (%) (Auto) 68, Lymphocytes (%) (Auto) 25, Monocytes (%) (Auto) 6, Eosinophils (%) (Auto) 2, Basophils (%) (Auto) 0, Neutrophils # (Auto) 6.9, Lymphocytes # (Auto) 2.5, Monocytes # (Auto) 0.6, E osinophils # (Auto) 0.2, Basophils # (Auto) 0.0, Sodium Level 137, Potassium Level 3.9, Chloride Level 107, Carbon Dioxide Level 17, Anion Gap 13, Blood Urea Nitrogen 6, Creatinine 0.63, Estimat Glomerular Filtration Rate > 60, BUN/Creatinine Ratio 10, Glucose Level 59, Calcium Level 7.6, Corrected Calcium 7.9, Total Bilirubin 0.2, Aspartate Amino Transf (AST/SGOT) 19, Alanine Hobbs otransferase (ALT/SGPT) 27, Alkaline Phosphatase 87, Total Protein 6.1, Albumin 3.6 06/28/19 05:00: Glucometer 114 Discharge Condition at discharge IMPROVED Instructions to patient/family Please see electronic discharge instructions given to patient. Discharge Medications Reviewed and agree with Discharge Medication list on patient's Discharge Instruction sheet Clinical Quality Measures DVT/VTE Risk/Contraindication: Risk Factor Score Per Nursin RFS Level Per Nursing on Admit: 4+=Very High ANDREA HUSSEIN MD Jun 28, 2019 08:49 POS
[2019-06-28] MEDS ORDERED: OMEP20TA7 PO (08:52)
[2019-06-28] MEDS ORDERED: METR-145 PO (08:52)
--- NOTE | 2019-06-28 08:55 | Discharge Inst-Complex ---
PDI Reconcile Patient Problems Problems Reviewed?: Yes Med Rec & Follow Up Appt. New Medications: Metronidazole (Metronidazole) 500 Mg Tablet 500 MG PO TID, #15 TAB Omeprazole (Omeprazole) 20 Mg Tablet.dr 20 MG PO DAILY, #15 TAB Continued Medications: Levothyroxine Sodium (Levothyroxine Sodium) 88 Mcg Tablet 88 MCG PO DAILY, TAB Lisinopril (Lisinopril) 20 Mg Tablet 20 MG PO DAILY, TAB Norgestimate-Ethinyl Estradiol (Tri-Sprintec Tablet) 1 Each Tablet 1 TAB PO DAILY, TAB Prescription: Transmitted to Pharmacy Activity, Diet and PDI Resume Normal Activity: Yes Discharge Diet: Other Diet (advance diet as tolerated) Driving Instructions: You May Drive Return to The Hospital For: any concern for lifethreatening illness, injury or any other acute concerns of worsening illness Symptoms to Reoprt to Dr.: Appetite Changes, Fever Over 101 Degrees F, Pain/Pressure in Chest, Diarrhea(Persistant), Shortness of Breath For Problems or Questions: Contact Your Physician, Go to Emergency Room Infection Signs and Symptoms: Temperature Above 101 F ANDREA HUSSEIN MD Jun 28, 2019 08:55 POS
[2019-06-28] MEDS ORDERED: LEVOTHYROXINE 88 MCG (LEVOTHORID) TAB PO SCH (09:00)
[2019-06-28] MEDS ORDERED: norgestimate-ethinyl estradioL 1 EACH TABLET PO SCH (09:00)
[2019-06-28 12:00] VITALS: BP 138/82
[2019-07-14] MEDS ORDERED: MTP25TSR PO (09:07)
[2019-07-15] MEDS ORDERED: MTP25TSR PO (08:46)
== END 2019-06-28 12:05 | disposition home or self-care (01) | DRG 392 ==
LOC: EDUNIT# 00:15 → ER FS 00:17 → CSD 03:07
PROVIDERS: ADMIT Internal Medicine; ATTEND Internal Medicine
DX: K52.3 Indeterminate colitis (principal); K63.9 Disease of intestine, unspecified; R18.8 Other ascites; D72.829 Elevated white blood cell count, unspecified; E86.0 Dehydration; I10 Essential (primary) hypertension; F41.9 Anxiety disorder, unspecified; F32.9 Major depressive disorder, single episode, unspecified; E03.9 Hypothyroidism, unspecified; K59.09 Other constipation; Z87.891 Personal history of nicotine dependence
CPT/HCPCS: 36415; 71045; 74177; 80053; 81000; 82962; 83605; 83690; 84484; 84703; 85007; 85025; 85027; 85610; 85730; 87015; 87040; 87045; 87046; 87088; 87328; 87899; 89055; 93005; 96361; 96365; 96375; 96376

== ENCOUNTER 2019-07-13 13:39 | Inpatient (IN) | payer OTHER ==
[~2019-07-13] VITALS: Ht 154 cm; Wt 78.0 kg
[~2019-07-13 13:39] MED LIST changes: -AMLO5TAB9 PO; -FAMO-119 PO; -METO-387 PO; -Promethazine/Codeine PO; -VANC50SO PO
[2019-07-13] MEDS ORDERED: IOHEXOL 350 MG/ML 100 ML (OMNIPAQUE 350) VIAL IV ONE (14:00)
[2019-07-13] MEDS ORDERED: HOLD METFORMIN - RECEIVED CONTRAST 20 ML VIAL IV SCH (14:00)
[2019-07-13] MEDS ORDERED: NS IV 1000 ML 1,000 ML IV SCH (14:00)
[2019-07-13] MEDS ORDERED: NS 100 ML (IVPB) BAG IV ONE (14:00)
[2019-07-13] MEDS ORDERED: meTOprolol 5 MG/5 ML (LOPRESSOR) VIAL IV ONE (14:00)
--- NOTE | 2019-07-13 14:00 | ED General ---
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 She's had a cough since just after Thanksgiving. Seems to be worse lately however, she has also had some fevers up to 100.8 this morning. She does have some mild shortness of breath. She was admitted here around June 28 for enteritis, received IV fluids as well as Rocephin plus metronidazole and discharged home on an oral course 3 days of Augmentin. She finished that around the . However since then she's had persistent tachycardia and hypertension that has required initiation of antihypertensives. She has been started on lisinopril 20 mg by mouth twice a day as well as Lopressor 25 mg once daily. Despite that, her blood pressure on arrival is 160/100 with a heart rate of 130 sinus. She does have persistent nonbloody diarrhea. She denies any abdominal pain but does report some upper back pain between her shoulder blades and in the right flank area. Timing/Duration: 1-2 Days Severity: Moderate Associated Systoms: Cough, Fever/Chills; No Headaches, No Nausea/Vomiting; Shortness of Air; No Syncope Allergies and Home Medications Allergies Coded Allergies: No Known Drug Allergies (Unverified , 06/27/19) Home Medications Levothyroxine Sodium 88 Mcg Tablet, 88 MCG PO DAILY, (Reported) Lisinopril 20 Mg Tablet, 20 MG PO DAILY, (Reported) Metronidazole 500 Mg Tablet, 500 MG PO TID Prescribed by: ANDREA HUSSEIN on 06/28/19 0852 Norgestimate-Ethinyl Estradiol 1 Each Tablet, 1 TAB PO DAILY, (Reported) Omeprazole 20 Mg Tablet.dr, 20 MG PO DAILY Prescribed by: ANDREA HUSSEIN on 06/28/19 0852 Patient Home Medication List Home Medication List Reviewed: Yes Review of Systems Review of Systems Constitutional: see HPI, fever EENTM: see HPI Respiratory: see HPI, cough, short of breath; No wheezing Genitourinary: no symptoms reported Musculoskeletal: no symptoms reported Skin: no symptoms reported Psychiatric/Neurological: No Symptoms Reported Hematologic/Lymphatic: No Symptoms Reported Immunological/Allergic: no symptoms reported Past [place]-Fnpbdg-Yrdyud Hx Patient Social History Alcohol Beverage of Choice: Beer Type Used: Cigarettes Former Smoker, Quit: Jul 19, 2008 2nd Hand Smoke Exposure: No Recent Foreign Travel: No Contact w/Someone Who Travel: No Recent Hopitalizations: No Immunizations Up To Date Date of Influenza Vaccine: Apr 27, 2019 Seasonal Allergies Seasonal Allergies: No Past Medical History Surgeries: No Respiratory: No Currently Using CPAP: No Currently Using BIPAP: No Cardiac: Yes Hypertension Neurological: No Reproductive Disorders: No Female Reproductive Disorders: Denies Sexually Transmitted Disease: No HIV/AIDS: No Genitourinary: No Gastrointestinal: No Chronic Constipation Musculoskeletal: No Endocrine: Yes Hypothyroidsim HEENT: No Loss of Vision: Denies Hearing Impairment: Denies Cancer: No Psychosocial: No Anxiety, Depression Integumentary: No Blood Disorders: No Adverse Reaction/Blood Tranf: No Family Medical History Hypercholesterolemia 19 FATHER 19 MOTHER Hypertension 19 FATHER 19 MOTHER Neoplasm 19 FATHER (melanoma ) Respiratory disorder 19 MOTHER (COPD emphysema ) Cancer, Hypertension Physical Exam Vital Signs Vital Signs - First Documented 07/13/19 07/13/19 14:12 14:19 Temp 37.8 Pulse 139 Resp 18 B/P (MAP) 155/106 (122) Pulse Ox 97 O2 Delivery Room Air Capillary Refill : Height, Weight, BMI Height: '" Weight: lbs. oz. kg; 31.25 BMI Method: General Appearance: No Apparent Distress, WD/WN Eyes: Bilateral Eye Normal Inspection, Bilateral Eye PERRL, Bilateral Eye EOMI HEENT: PERRL/EOMI, TMs Normal Neck: Full Range of Motion, Normal Inspection Respiratory: Normal Breath Sounds, No Accessory Muscle Use, No Respiratory Distress; No Wheezing (good air movement without wheezing) Cardiovascular: Normal Peripheral Pulses, Tachycardia (neuro complex regular 130) Gastrointestinal: Normal Bowel Sounds, Non Tender, Soft Extremity: Normal Capillary Refill, Normal Inspection Neurologic/Psychiatric: Alert, Oriented x3 Skin: Normal Color, Warm/Dry Focused Exam Lactate Level 07/13/19 14:00: Lactic Acid Level 0.92 Lactic Acid Level Laboratory Tests Test 07/13/19 14:00 Lactic Acid Level 0.92 MMOL/L (0.50-2.00) Progress/Results/Core Measures Suspected Sepsis SIRS Temperature: Pulse: Respiratory Rate: Laboratory Tests 07/13/19 14:00: White Blood Count 19.9H Blood Pressure / Mean: 07/13/19 14:00: Lactic Acid Level 0.92 Laboratory Tests 07/13/19 14:00: Creatinine 0.72, Platelet Count 317, Total Bilirubin 0.4 Results/Orders Lab Results Laboratory Tests Test 07/13/19 14:00 07/13/19 14:32 Range/Units White Blood Count 19.9 H 4.3-11.0 10^3/uL Red Blood Count 4.15 L 4.35-5.85 10^6/uL Hemoglobin 11.8 11.5-16.0 G/DL Hematocrit 35 35-52 % Mean Corpuscular Volume 84 80-99 FL Mean Corpuscular Hemoglobin 28 25-34 PG Mean Corpuscular Hemoglobin Concent 34 32-36 G/DL Red Cell Distribution Width 13.5 10.0-14.5 % Platelet Count 317 130-400 10^3/uL Mean Platelet Volume 10.9 H 7.4-10.4 FL Neutrophils (%) (Auto) 80 H 42-75 % Lymphocytes (%) (Auto) 8 L 12-44 % Monocytes (%) (Auto) 10 0-12 % Eosinophils (%) (Auto) 1 0-10 % Basophils (%) (Auto) 0 0-10 % Neutrophils # (Auto) 16.0 H 1.8-7.8 X 10^3 Lymphocytes # (Auto) 1.6 1.0-4.0 X 10^3 Monocytes # (Auto) 2.1 H 0.0-1.0 X 10^3 Eosinophils # (Auto) 0.2 0.0-0.3 10^3/uL Basophils # (Auto) 0.0 0.0-0.1 10^3/uL Neutrophils % (Manual) 82 % Lymphocytes % (Manual) 12 % Monocytes % (Manual) 6 % Toxic Granulation 1+ Blood Morphology Comment NORMAL Erythrocyte Sedimentation Rate 26 H 0-20 MM/HR Sodium Level 137 135-145 MMOL/L Potassium Level 3.7 3.6-5.0 MMOL/L Chloride Level 103 98-107 MMOL/L Carbon Dioxide Level 20 L 21-32 MMOL/L Anion Gap 14 5-14 MMOL/L Blood Urea Nitrogen 8 7-18 MG/DL Creatinine 0.72 0.60-1.30 MG/DL Estimat Glomerular Filtration Rate > 60 BUN/Creatinine Ratio 11 Glucose Level 106 H 70-105 MG/DL Lactic Acid Level 0.92 0.50-2.00 MMOL/L Calcium Level 9.0 8.5-10.1 MG/DL Corrected Calcium 9.0 8.5-10.1 MG/DL Total Bilirubin 0.4 0.1-1.0 MG/DL Aspartate Amino Transf (AST/SGOT) 12 5-34 U/L Alanine Aminotransferase (ALT/SGPT) 16 0-55 U/L Alkaline Phosphatase 87 40-136 U/L Troponin I < 0.028 <0.028 NG/ML C-Reactive Protein High Sensitivity 6.54 H 0.00-0.50 MG/DL B-Type Natriuretic Peptide 71.8 <100.0 PG/ML Total Protein 7.0 6.4-8.2 GM/DL Albumin 4.0 3.2-4.5 GM/DL Thyroid Stimulating Hormone (TSH) 1.27 0.35-4.94 UIU/ML Free Thyroxine 1.11 0.70-1.48 NG/DL Urine Color YELLOW Urine Clarity CLEAR Urine pH 6.0 5-9 Urine Specific [place] 1.015 L 1.016-1.022 Urine Protein NEGATIVE NEGATIVE Urine Glucose (UA) NEGATIVE NEGATIVE Urine Ketones TRACE H NEGATIVE Urine Nitrite NEGATIVE NEGATIVE Urine Bilirubin NEGATIVE NEGATIVE Urine Urobilinogen 0.2 < = 1.0 MG/DL Urine Leukocyte Esterase 1+ H NEGATIVE Urine RBC (Auto) TRACE-I NEGATIVE Urine RBC 5-10 H /HPF Urine WBC 10-25 H /HPF Urine Squamous Epithelial Cells 5-10 /HPF Urine Crystals NONE /LPF Urine Bacteria TRACE /HPF Urine Casts NONE /LPF Urine Mucus NEGATIVE /LPF Urine Culture Indicated YES Urine Test NEGATIVE NEGATIVE Micro Results Microbiology 07/13/19 Influenza Types A,B Antigen (JAGJIT) - Final, Complete My Orders Orders - REBECA BENTON NUCLEAR MEDICINE TECHNICIAN Cbc With Automated Diff (07/13/19 13:54) Comprehensive Metabolic Panel (07/13/19 13:54) Thyroid Stimulating Hormone (07/13/19 13:54) Free T4 (Free Thyroxine) (07/13/19 13:54) Ed Iv/Invasive Line Start (07/13/19 13:54) Ct Angio Chest W (07/13/19 13:54) Erythrocyte Sedimentation Rate (07/13/19 13:54) Hs C Reactive Protein (07/13/19 13:54) Metoprolol Tartrate Injection (Lopressor (07/13/19 14:00) BNP (07/13/19 13:54) Ns Iv 1000 Ml (Sodium Chloride 0.9%) (07/13/19 14:00) Ua Culture If Indicated (07/13/19 13:56) Blood Culture (07/13/19 13:56) Lactic Acid Analyzer (07/13/19 13:56) Iohexol Injection (Omnipaque 350 Mg/Ml 1 (07/13/19 14:00) Received Contrast (Hold Metformin- Contr (07/13/19 14:00) Ns (Ivpb) (Sodium Chloride 0.9% Ivpb Bag (07/13/19 14:00) Manual Differential (07/13/19 14:00) Ekg Tracing (07/13/19 14:15) Troponin I (07/13/19 14:00) Hcg,Qualitative Urine (07/13/19 14:45) Urine Culture (07/13/19 14:32) Influenza A And B Antigens (07/13/19 14:51) Ibuprofen Tablet (Motrin Tablet) (07/13/19 15:00) Piperacillin Sodium/Tazobactam (Zosyn Vi (07/13/19 15:45) Medications Given in ED Current Medications Medications Dose Ordered Sig/Elroy Route Start Time Stop Time Status Last Admin Dose Admin Ibuprofen 800 mg ONCE ONCE PO 07/13/19 15:00 07/13/19 15:01 DC 07/13/19 15:02 800 MG Iohexol 100 ml ONCE ONCE IV 07/13/19 14:00 07/13/19 14:07 DC 07/13/19 15:03 75 ML Metoprolol Tartrate 5 mg ONCE ONCE IV 07/13/19 14:00 07/13/19 14:01 DC 07/13/19 14:02 5 MG Sodium Chloride 100 ml ONCE ONCE IV 07/13/19 14:00 07/13/19 14:07 DC 07/13/19 15:03 80 ML Vital Signs/I&O 07/13/19 07/13/19 14:12 14:19 Temp 37.8 Pulse 139 Resp 18 B/P (MAP) 155/106 (122) Pulse Ox 97 O2 Delivery Room Air Capillary Refill : Diagnostic Imaging Diagonstic Imaging: CT Plain Films/CT/US/NM/MRI: chest Comments NAME: RADHA STEELE [facility] REC#: [id number] PT STATUS: REG ER : 1970 PHYSICIAN: REBECA BENTON APRN ADMIT DATE: 07/13/19/ER Draft Date of Exam:07/13/19 CT ANGIO CHEST W PROCEDURE: CT angiography of the chest with contrast. TECHNIQUE: Multiple contiguous axial images were obtained through the chest after uneventful bolus administration of intravenous contrast. 3D reconstructed CTA MIP acquisitions were also performed. Auto Exposure Controls were utilized during the CT exam to meet ALARA standards for radiation dose reduction. INDICATION: Dyspnea and fever with cough for 5 days. COMPARISON: None. DISCUSSION: The lungs are well-aerated. There is poor opacification of the pulmonary arteries which is technical and likely secondary to a vasovagal reaction as there is good opacification of the SVC and aorta. There is no large or central pulmonary embolus. Exam is indeterminate for small or more peripheral emboli. 4 mm nodule within the right lower lobe, indeterminate. Recommend follow-up by the Fleischner criteria. Normal heart size. The thoracic aorta is normal in caliber and configuration. No pleural or pericardial fluid. Heterogenous appearance of the liver is nonspecific by CT. This could be due to timing of contrast administration though an underlying infectious or infiltrative process is not excluded. If clinically relevant, recommend dedicated imaging such as ultrasound. No osseous abnormality identified. IMPRESSION: 1. No large or central pulmonary embolus. Exam is indeterminate for smaller peripheral emboli. 2. Abnormal appearance of the liver, as discussed above. See above recommendations. 3. No consolidation identified. 4. There is a 4 mm right lower lobe pulmonary nodule, indeterminate. Dictated on workstation # [id number] Dict: 07/13/19 1504 Trans: 07/13/19 1511 [facility] [id number] Interpreted by: GONZALO CISNEROS MD Electronically signed by: Departure Communication (Admissions) Time/Spoke to Admitting Phy: 15:[address] Aaron, will admit for UTI/pyelonephritis with sepsis. Zosyn plus fluids. We will also consult Dr. Khalid for the new onset hypertension and tachycardia since her enteritis illness around June 28 in spite of antihypertensives. Given the worsening cough we should also stop her CHE inhibitor. Impression Primary Impression: Cough Additional Impression: UTI (urinary tract infection) Qualified Codes: N30.00 - Acute cystitis without hematuria Disposition: ADMITTED INPATIENT Condition: Stable Admissions Decision to Admit Reason: Admit from ER (General) Decision to Admit/Date: Jul 13, 2019 Time/Decision to Admit Time: 15:22 Departure-Patient Inst. Referrals: ANDREA HUSSEIN MD (PCP/Family) Primary Care Physician REBECA BENTON APRN Jul 13, 2019 14:00
[2019-07-13 14:11] LABS: BASOPHILS % (AUTO) 0 % (0-10); EOSINOPHILS # (AUTO) 0.2 10^3/uL (0.0-0.3); EOSINOPHILS % (AUTO) 1 % (0-10); HEMATOCRIT 35 % (35-52); HEMOGLOBIN 11.8 G/DL (11.5-16.0); LYMPHOCYTES # (AUTO) 1.6 X 10^3 (1.0-4.0); LYMPHOCYTES % (AUTO) 8 % (12-44); MEAN CORPUSCULAR HEMOGLOBIN 28 PG (25-34); MEAN CORPUSCULAR HGB CONC 34 G/DL (32-36); MEAN CORPUSCULAR VOLUME 84 FL (80-99); MEAN PLATELET VOLUME 10.9 FL (7.4-10.4); MONOCYTES # (AUTO) 2.1 X 10^3 (0.0-1.0); MONOCYTES % (AUTO) 10 % (0-12); NEUTROPHILS % (AUTO) 80 % (42-75); PLATELET COUNT 317 10^3/uL (130-400); RED CELL DISTRIBUTION WIDTH 13.5 % (10.0-14.5); WHITE BLOOD COUNT 19.9 10^3/uL (4.3-11.0)
[2019-07-13 14:29] LABS: ALANINE AMINOTRANSFERASE 16 U/L (0-55); ALKALINE PHOSPHATASE 87 U/L (40-136); BILIRUBIN,TOTAL 0.4 MG/DL (0.1-1.0); BUN/CREATININE RATIO 11; CARBON DIOXIDE 20 MMOL/L (21-32); CHLORIDE 103 MMOL/L (98-107); CREATININE SERUM 0.72 MG/DL (0.60-1.30); GFR ESTIMATED > 60; GLUCOSE 106 MG/DL (70-105); POTASSIUM 3.7 MMOL/L (3.6-5.0); SODIUM 137 MMOL/L (135-145)
[2019-07-13 14:35] LABS: ERYTHROCYTE SEDIMENTATION RATE 26 MM/HR (0-20); LYMPHOCYTES % (MANUAL) 12 %; MONOCYTES % (MANUAL) 6 %; NEUTROPHILS % (MANUAL) 82 %; RBC MORPH NORMAL; TOXIC GRANULATION/VACUOLAZATIO 1+
[2019-07-13 14:41] LABS: BILIRUBIN,URINE NEGATIVE (NEGATIVE); CLARITY,URINE CLEAR; COLOR,URINE YELLOW; GLUCOSE, URINE (UA) NEGATIVE (NEGATIVE); KETONES,URINE TRACE (NEGATIVE); LEUKOCYTE ESTERASE ,URINE 1+ (NEGATIVE); NITRITE,URINE NEGATIVE (NEGATIVE); PROTEIN,URINE NEGATIVE (NEGATIVE)
[2019-07-13 14:47] LABS: BACTERIA,URINE TRACE /HPF
[2019-07-13 14:50] LABS: FREE T4 (FREE THYROXINE) 1.11 NG/DL (0.70-1.48)
[2019-07-13] MEDS ORDERED: IBUPROFEN 800 MG (MOTRIN) TAB PO ONE (15:00)
--- NOTE | 2019-07-13 15:11 | Diagnostic Imaging Report ---
PROCEDURE: CT angiography of the chest with contrast. TECHNIQUE: Multiple contiguous axial images were obtained through the chest after uneventful bolus administration of intravenous contrast. 3D reconstructed CTA MIP acquisitions were also performed. Auto Exposure Controls were utilized during the CT exam to meet ALARA standards for radiation dose reduction. INDICATION: Dyspnea and fever with cough for 5 days. COMPARISON: None. DISCUSSION: The lungs are well-aerated. There is poor opacification of the pulmonary arteries which is technical and likely secondary to a vasovagal reaction as there is good opacification of the SVC and aorta. There is no large or central pulmonary embolus. Exam is indeterminate for small or more peripheral emboli. 4 mm nodule within the right lower lobe, indeterminate. Recommend follow-up by the Fleischner criteria. Normal heart size. The thoracic aorta is normal in caliber and configuration. No pleural or pericardial fluid. Heterogenous appearance of the liver is nonspecific by CT. This could be due to timing of contrast administration though an underlying infectious or infiltrative process is not excluded. If clinically relevant, recommend dedicated imaging such as ultrasound. No osseous abnormality identified. IMPRESSION: 1. No large or central pulmonary embolus. Exam is indeterminate for smaller peripheral emboli. 2. Abnormal appearance of the liver, as discussed above. See above recommendations. 3. No consolidation identified. 4. There is a 4 mm right lower lobe pulmonary nodule, indeterminate. Dictated by: Dictated on workstation # [id number]
[2019-07-13] MEDS ORDERED: PIPERACILLIN SODIUM/TAZOBACTAM 4.5 GM in NS (IVPB) 100 ML IV ONE (15:45)
[2019-07-13 16:43] VITALS: BP 127/86
[2019-07-13 16:52] VITALS: BP 127/86
[2019-07-13] MEDS ORDERED: APAP 300 MG/CODEINE 30 MG (TYLENOL #3) TAB PO PRN (17:00)
[2019-07-13] MEDS ORDERED: ONDANSETRON 4 MG/2 ML (SDV) Z0FRAN IV PRN (17:00)
[2019-07-13] MEDS: ENOXAPARIN 40 MG/0.4 ML (LOVENOX) SYR SC SCH ×2 (17:04→21:19)
[2019-07-13] MEDS: NS IV 1000 ML 1,000 ML IV SCH (17:11)
[2019-07-13] MEDS: ACETAMINOPHEN 325 MG TABLET PO PRN ×2 (18:11→22:59)
[2019-07-13] MEDS ORDERED: ALPRAZolam 0.25 MG (XANAX) TAB PO PRN (18:30)
[2019-07-13] MEDS ORDERED: diphenhydrAMINE 25 MG TAB (BENADRYL) PO PRN (18:30)
[2019-07-13] MEDS ORDERED: CALCIUM CARBONATE 500 MG (TUMS) TAB.CHEW PO PRN (18:30)
[2019-07-13] MEDS ORDERED: DOCUSATE SODIUM 100 MG (COLACE) CAP PO PRN (18:30)
[2019-07-13] MEDS ORDERED: HYDROcodone/APAP 5 MG/325 MG (LORTAB) TAB PO PRN (18:30)
[2019-07-13] MEDS ORDERED: MELATONIN 3 MG TABLET PO PRN (18:30)
[2019-07-13 19:31] VITALS: BP 120/83
[2019-07-13] MEDS ORDERED: PIPERACILLIN/TAZO 4.5 GM VIAL (ZOSYN) IV ONE (21:00)
[2019-07-13] MEDS ORDERED: NS (IVPB) 100 ML ONE (21:00)
[2019-07-13] MEDS: LOPERAMIDE 2 MG (IMODIUM) TABLET PO PRN (21:18)
[2019-07-13] MEDS: IBUPROFEN 600 MG (MOTRIN) TAB PO PRN (21:19)
[2019-07-13] MEDS: PIPERACILLIN/TAZO 4.5 GM/NS 100 ML IV SCH ×2 (21:19)
[2019-07-13] MEDS: ONDANSETRON 4 MG/2 ML (SDV) Z0FRAN IVP PRN (22:50)
[2019-07-13 23:06] VITALS: BP 120/76
[2019-07-14] MEDS: NS IV 1000 ML 1,000 ML IV SCH ×4 (00:26→21:57)
[2019-07-14] MEDS: ONDANSETRON 4 MG/2 ML (SDV) Z0FRAN IVP PRN (02:23)
[2019-07-14 03:45] LABS: BASOPHILS % (AUTO) 0 % (0-10); EOSINOPHILS # (AUTO) 0.2 10^3/uL (0.0-0.3); EOSINOPHILS % (AUTO) 1 % (0-10); HEMATOCRIT 32 % (35-52); HEMOGLOBIN 10.7 G/DL (11.5-16.0); LYMPHOCYTES # (AUTO) 1.1 X 10^3 (1.0-4.0); LYMPHOCYTES % (AUTO) 6 % (12-44); MEAN CORPUSCULAR HEMOGLOBIN 28 PG (25-34); MEAN CORPUSCULAR HGB CONC 33 G/DL (32-36); MEAN CORPUSCULAR VOLUME 85 FL (80-99); MEAN PLATELET VOLUME 11.2 FL (7.4-10.4); MONOCYTES # (AUTO) 2.2 X 10^3 (0.0-1.0); MONOCYTES % (AUTO) 12 % (0-12); NEUTROPHILS # (AUTO) 14.6 X 10^3 (1.8-7.8); NEUTROPHILS % (AUTO) 80 % (42-75); PLATELET COUNT 260 10^3/uL (130-400); RED CELL DISTRIBUTION WIDTH 13.5 % (10.0-14.5); WHITE BLOOD COUNT 18.1 10^3/uL (4.3-11.0)
[2019-07-14 04:00] VITALS: BP 108/72
[2019-07-14 04:03] LABS: ALANINE AMINOTRANSFERASE 15 U/L (0-55); ALBUMIN 3.3 GM/DL (3.2-4.5); ALKALINE PHOSPHATASE 67 U/L (40-136); BILIRUBIN,TOTAL 0.4 MG/DL (0.1-1.0); BUN/CREATININE RATIO 6; CALCIUM 7.6 MG/DL (8.5-10.1); CARBON DIOXIDE 18 MMOL/L (21-32); CHLORIDE 110 MMOL/L (98-107); CREATININE SERUM 0.68 MG/DL (0.60-1.30); GFR ESTIMATED > 60; GLUCOSE 96 MG/DL (70-105); SODIUM 140 MMOL/L (135-145); TOTAL PROTEIN 5.8 GM/DL (6.4-8.2)
[2019-07-14] MEDS: ACETAMINOPHEN 325 MG TABLET PO PRN (04:10)
[2019-07-14] MEDS ORDERED: POTASSIUM CL 10MEQ/50ML IVPB 250 ML IV ONE (04:17)
[2019-07-14] MEDS: POTASSIUM CL 10MEQ/50ML IVPB 50 ML IV SCH ×5 (04:27→08:36)
[2019-07-14] MEDS ORDERED: NS (IVPB) 100 ML ONE (05:24)
[2019-07-14] MEDS ORDERED: PIPERACILLIN/TAZO 4.5 GM VIAL (ZOSYN) IV ONE (05:24)
[2019-07-14] MEDS: MAGNESIUM 1 GM/100 ML IVPB 100 ML IV SCH ×4 (05:34→08:55)
[2019-07-14] MEDS: PIPERACILLIN/TAZO 4.5 GM/NS 100 ML IV SCH ×6 (05:34→21:57)
[2019-07-14] MEDS: LOPERAMIDE 2 MG (IMODIUM) TABLET PO PRN (06:14)
[2019-07-14 07:54] VITALS: BP 117/79
--- NOTE | 2019-07-14 08:38 | History & Physical ---
History of Present Illness History of Present Illness Reason for visit/HPI PT IS A 49 Y/O FEMALE WHO IS KNOWN TO ME FROM CLINIC AND PREVIOUS RECENT HOSPITALIZATION. SHE REPORTS THAT SHE WAS SEEN IN THE OFFICE LAST WEEK FOR A HOSPITAL FOLLOW UP- THIS WAS ON THURSDAY OF LAST WEEK. SHE REPORTS THAT SHE WAS FEELING "GREAT" THAT DAY AND THEN ON THURSDAY SHE FELT HORRIBLE, COUGH, FEVER, THOUGHT SHE HAD THE FLU AND WAS SICK UNTIL THURSDAY AND SHE FELT MUCH BETTER ON THURSDAY (THE ) THEN ON SHE STARTED TO HAVE THE FEVER AND COUGH AGAIN. SHE REPORTS THAT HER HEART RATE WAS ELEVATED DURING THIS TIME AND SHE HAD BEEN SPLITTING HER METOPROLOL TO TRY TO BRING DOWN HER HEART RATE. SHE STATES THAT SHE HAS HAD DIARRHEA OFF AND ON FOR THE PAST FEW DAYS WELL. Date of Admission Jul 13, 2019 at 15:27 Date Seen by a Provider: Jul 14, 2019 Time Seen by a Provider: 08:30 I consulted on this patient on 07/14/19 08:30 Attending Physician ANDREA TORRES MD Admitting Physician Andrea Torres MD Consult Allergies and Home Medications Allergies Coded Allergies: No Known Drug Allergies (Unverified , 06/27/19) Home Medications Famotidine 20 Mg Tablet, 20 MG PO BID, (Reported) Levothyroxine Sodium 88 Mcg Tablet, 88 MCG PO DAILY, (Reported) Lisinopril 20 Mg Tablet, 20 MG PO DAILY, (Reported) Metoprolol Succinate 25 Mg Tab.er.24h, 25 MG PO DAILY, (Reported) Norgestimate-Ethinyl Estradiol 1 Each Tablet, 1 TAB PO DAILY, (Reported) Patient Home Medication List Home Medication List Reviewed: Yes Past Gnpdabo-Lchtky-Qmbrty Hx Past Med/Social Hx: Reviewed Nursing Past Med/Soc Hx, Reviewed and Corrections made Patient Social History Marrital Status: Living Status: [place] WITH HER SPOUSE 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[employer]) Alcohol Use: Occasionally Uses Number of Drinks Today: AA Alcohol Beverage of Choice: Beer Recreational Drug Use: No Smoking Status: Former Smoker Former Smoker, Quit: Jul 19, 2008 Type Used: Cigarettes 2nd Hand Smoke Exposure: No Physical Abuse Screen: No Sexual Abuse: No Recent Foreign Travel: No Contact w/other who traveled: No Recent Hopitalizations: No Recent Infectious Disease Expo: No Immunizations Up To Date Date of Influenza Vaccine: Apr 27, 2019 Seasonal Allergies Seasonal Allergies: No Past Medical History Currently Using CPAP: No Currently Using BIPAP: No Cardiac: Hypertension : No Reproductive: No Sexually Transmitted Disease: No HIV/AIDS: No Female Reproductive Disorders: Denies Gastrointestinal: Chronic Constipation Endocrine: Hypothyroidsim Loss of Vision: Denies Hearing Impairment: Denies Psychosocial: Anxiety, Depression History of Blood Disorders: No Adverse Reaction to Blood Pérez: No Family History Reviewed Nursing Family Hx Hypercholesterolemia 19 FATHER 19 MOTHER Hypertension 19 FATHER 19 MOTHER Neoplasm 19 FATHER (melanoma ) Respiratory disorder 19 MOTHER (COPD emphysema ) Cancer, Hypertension Review of Systems Constitutional: No chills; fever, malaise, weakness EENTM: No hoarseness, No throat pain Respiratory: cough; No dyspnea on exertion, No short of breath Cardiovascular: No palpitations; other (TACHYCARDIA) Gastrointestinal: abdominal pain (RUQ), diarrhea Genitourinary: No dysuria; frequency; No hematuria, No pain Musculoskeletal: muscle pain; No muscle weakness Skin: no symptoms reported; No rash Psychiatric/Neurological: No Symptoms Reported All Other Systems Reviewed Negative Unless Noted: Yes Physical Exam Vital Signs Vital Signs - First Documented 07/13/19 07/13/19 14:12 14:19 Temp 37.8 Pulse 139 Resp 18 B/P (MAP) 155/106 (122) Pulse Ox 97 O2 Delivery Room Air Capillary Refill : Less Than 3 Seconds Height, Weight, BMI Height: '" Weight: lbs. oz. kg; 31.62 BMI Method: General Appearance: No Apparent Distress, WD/WN Eyes: Bilateral Eye Normal Inspection, Bilateral Eye PERRL, Bilateral Eye EOMI HEENT: PERRL/EOMI, Pharynx Normal Neck: Full Range of Motion, Non Tender, Supple Respiratory: Chest Non Tender, Lungs Clear, Normal Breath Sounds, No Accessory Muscle Use, No Respiratory Distress Cardiovascular: Regular Rate, Rhythm, No Edema, No Murmur, Normal Peripheral Pulses Gastrointestinal: Normal Bowel Sounds, Soft, Tenderness (RUQ, EPIGASTRIUM, LUQ - - NONTENDER IN LOWER ABD BILATERALLY) Rectal: Deferred Back: Normal Inspection, No Vertebral Tenderness Extremity: Normal Capillary Refill, Non Tender, No Calf Tenderness, No Pedal Edema Neurologic/Psychiatric: Alert, Oriented x3, No Motor/Sensory Deficits, Normal Mood/Affect, 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 TACHYCARDIA - MONITOR HEART RATE - SHOULD IMPROVE WITH HYDRATION - PT HAS PRN METOPROLOL IV HYPOKALEMIA AND HYPOMAGNESEMIA - REPLACE PER PROTOCOL IRREGULAR CT SCAN OF LIVER - DISCUSSED WITH PT - WILL CHECK A LIVER ULTRASOUND HYPERTENSION - INTERMITTENT - CHECK RENAL ARTERY DOPPLERS TO SEE IF THERE IS ANY EVIDENCE OF RENAL ARTERY STENOSIS COUGH - CHECK MYCOPLASMA ANTIBODIES - START PHENERGAN WITH CODEINE COUGH SYRUP - CHECK CXR IN MORNING ANTICIPATE RADHA WILL BE IN THE HOSPITAL FOR AT LEAST ANOTHER 48 - 72 HOURS WE MONITOR HER LABS ON CURRENT REGIMEN AND MAKE CHANGES NEEDED BASED ON OUR TESTING. Admission Diagnosis URINARY TRACT INFECTION LEUKOCYTOSIS DIARRHEA TACHYCARDIA HYPOKALEMIA HYPOMAGNESEMIA IRREGULAR CT SCAN OF LIVER INTERMITTENT HYPERTENSION Admission Status: Inpatient Order (span 2 midnights) Reason for Inpatient Admission: INPT ADMISSION FOR LEUKOCYTOSIS, UTI, ELEVATED CRP, DIARRHEA Clinical Quality Measures DVT/VTE Risk/Contraindication: Risk Factor Score Per Nursin RFS Level Per Nursing on Admit: 4+=Very High ANDREA TORRES MD Jul 14, 2019 08:38
[2019-07-14] MEDS ORDERED: FAMO-119 PO (09:07)
[2019-07-14] MEDS ORDERED: METO-387 PO (09:07)
--- NOTE | 2019-07-14 09:07 | NUR ---
WENT OVER THE EXT MED HX WITH THE PATIENT. SHE VERIFIED HOW SHE TAKES HER MEDICATION. SHE WAS PRESCRIBED OMEPRAZOLE BUT STATES SHE DID NOT FILL IT WAS TOLD TO GET IT OTC. SHE PURCHASED PEPCID INSTEAD AND TAKES IT BID.
[2019-07-14] MEDS: PROMETHAZINE/ CODEINE SYRUP 5 ML UDC PO PRN ×2 (09:35→20:25)
--- NOTE | 2019-07-14 09:58 | NUR ---
CDIFF POSITIVE, DR HUSSEIN INFORMED.
[2019-07-14] MEDS: VANCOMYCIN 50 MG/ML ORAL SOLN 150 ML PO SCH ×3 (10:37→21:57)
[2019-07-14] MEDS: IBUPROFEN 600 MG (MOTRIN) TAB PO PRN (11:40)
[2019-07-14 12:00] VITALS: BP 99/63
--- NOTE | 2019-07-14 13:14 | Diagnostic Imaging Report ---
INDICATION: Labile blood pressure TECHNIQUE: Multiple real-time grayscale sonographic images, color and duplex Doppler images were obtained of the urinary system. FINDINGS: Aortic velocity: 56 cm/sec. RIGHT kidney: Size: 10.9 x 5.6 x 5.0 cm The right renal parenchyma and collecting system appear unremarkable. The right renal artery is visualized in its proximal, mid and distal aspect. Maximum renal artery velocity: 67cm/sec Maximum renal artery/aortic ratio: 1.2 LEFT kidney: Size: 11.3 x 5.5 x 4.8 cm The left renal parenchyma and collecting system appear unremarkable. The left renal artery is visualized in its proximal, mid and distal aspect. Maximum renal artery velocity: 59cm/sec Maximum renal artery/aortic ratio: 1.0 Bladder: Not imaged. IMPRESSION: 1. Unremarkable renal ultrasound with doppler. (RA/AO ratios > 3.0 may suggest potential hemodynamically significant stenosis.) Dictated by: Dictated on workstation # [id number]
--- NOTE | 2019-07-14 13:15 | Diagnostic Imaging Report ---
PROCEDURE: US Hepatic (Liver). TECHNIQUE: Multiple real-time grayscale images were obtained over the right upper quadrant in various projections. INDICATION: Abnormal liver appearance on recent CT angiogram of the chest. Study is performed for further evaluation. CORRELATION is made with CT angiogram of the chest one day earlier. Liver is normal in size at 15 cm. Hepatic parenchyma shows homogeneous echotexture. No discrete hepatic mass is detected. The portal vein is patent and shows normal direction of flow. Gallbladder is without stones or sludge. No wall thickening or biliary ductal dilatation is identified. The pancreas was obscured by bowel gas. Aorta proximally appears to be normal caliber. IVC is patent. The right kidney is without calculi or hydronephrosis. There is no ascites. IMPRESSION: Unremarkable hepatic ultrasound. Dictated by: Dictated on workstation # [id number]
[2019-07-14 16:00] VITALS: BP 94/63
--- NOTE | 2019-07-14 16:49 | Consultation-Cardiology ---
HPI-Cardiology Cardiology Consultation: Date of Consultation 07/14/19 Date of Admission Attending Physician Erma Aaron DO Admitting Physician Andrea Torres MD Consulting Physician Miguel Ángel TSAI MD HPI: Time Seen by a Provider: 13:00 Chief Complaint: tachycardia, hypertension This is a 49-year-old lady presents to the ER with complains of cough and fever. Mild shortness of breath. She had a previous admission for gastroenteritis. Completed course of antibiotics. Presented with persistent tachycardia and hypertension. She was previously started on lisinopril 20 mg and beta lucas. She has persistent nonbloody diarrhea. She denies any chest pain, syncope, near-syncope or palpitations. Review of Systems-Cardiology Review of Systems Constitutional: As described under HPI; No As described under HPI, No no symptoms reported, No chills, No fever, No lightheadedness Eyes: No As described under HPI, No no symptoms reported, No blindness, No blurred vision, No contact lenses, No drainage, No decreased acuity, No foreign body sensation, No pain, No vision change Ears/Nose/Throat: No As described under HPI, No no symptoms reported, No chronic hearing loss, No ear discharge, No ear pain, No nasal drainage, No ulcerations Respiratory: No no symptoms reported; As described under HPI; No As described under HPI, No cough, No orthopnea; shortness of breath; No SOB with excertion Cardiovascular: No no symptoms reported; As described under HPI; No As described under HPI, No chest pain, No edema, No irregular heart rate, No lightheadedness, No palpitations Gastrointestinal: No no symptoms reported, No As described under HPI, No abdomen distended, No abdominal pain, No blood streaked bowels, No constipation, No diarrhea, No nausea, No vomiting; nausea/vomiting/diarrhea; No stool coloration changes Genitourinary: No As described under HPI, No burning, No dysuria, No discharge, No frequency, No flank pain, No hematuria, No urgency : Yes : No Skin: No rash, No skin related problems, No ulcerations Psychiatric/Neurological: No anxiety, No depression, No seizure, No focal wea kness, No syncope Hematologic: No bleeding abnormalities All Other Systems Reviewed Negative Unless Noted: Yes NJN-Qbimnu-Soroka Hx Patient Social History Marrital Status: Living Status: LIVES IN [place] WITH HER SPOUSE 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 Family Medical History Family History: Hypercholesterolemia 19 FATHER 19 MOTHER Hypertension 19 FATHER 19 MOTHER Neoplasm 19 FATHER (melanoma ) Respiratory disorder 19 MOTHER (COPD emphysema ) Allergies and Home Medications Allergies Coded Allergies: No Known Drug Allergies (Unverified , 06/27/19) Home Medications Famotidine 20 Mg Tablet, 20 MG PO BID, (Reported) Levothyroxine Sodium 88 Mcg Tablet, 88 MCG PO DAILY, (Reported) Metoprolol Succinate 25 Mg Tab.er.24h, 25 MG PO DAILY hold if sbp is less than or equal to 120 Prescribed by: ANDREA TORRES on 07/15/19 0846 Norgestimate-Ethinyl Estradiol 1 Each Tablet, 1 TAB PO DAILY, (Reported) Vancomycin HCl 50 Mg/1 Ml Soln.recon, 125 MG PO Q6H 2.5mL q 6 hours x 12 more days (until bottle is empty) Prescribed by: ANDREA TORRES on 07/15/19 0846 [Promethazine/Codeine] 5 ML SYRP, 5 ML PO Q4H PRN for COUGH Prescribed by: ANDREA TORRES on 07/15/19 0846 Patient Home Medication List Home Medication List Reviewed: Yes Physical Exam-Cardiology Physical Exam Vital Signs/I&O 07/15/19 07/15/19 07/15/19 07/15/19 06:42 08:00 08:00 09:00 Pulse 104 87 Resp 18 B/P (MAP) 156/102 (120) Pulse Ox 96 O2 Delivery Room Air Room Air Room Air 07/15/19 07/15/19 07/15/19 07/15/19 11:21 12:00 12:00 12:40 Temp 36.6 36.5 Pulse 79 60 92 Resp 19 B/P (MAP) 151/98 (115) 164/93 (116) Pulse Ox 95 O2 Delivery Room Air Room Air Room Air 07/15/19 13:55 B/P (MAP) 149/89 (109) 07/15/19 00:00 Intake Total 870 ml Output Total 1900 ml Balance -1030 ml Capillary Refill : Less Than 3 Seconds Constitutional: appears stated age; No apparent distress; well-developed, well- nourished HEENT: PERRL; No discharge; hearing is well preserved, oral hygience is good; No ulceration, No xanthelasmas are seen Neck: No carotid bruit; carotid pulses are 2 + bilaterally Respiratory: chest is bilaterally symmetric, lungs clear to auscultation Cardiovascular: regular rate-rhythm, tachycardia, S1 and S2 Gastrointestinal: soft, audible bowel sounds; No spleenomegaly Rectal: deferred Extremities: normal range of motion, non-tender, normal inspection; No clubbing, No cyanosis; no lower extremity edema bilateral; No significant edema Neurologic/Psychiatric: no motor/sensory deficits, alert, normal mood/affect, oriented x 3, power is 5/5 both on sides Skin: normal color; No rash, No ulcerations Data Review Labs Laboratory Tests 07/15/19 03:37: White Blood Count 14.9H, Red Blood Count 3.44L, Hemoglobin 9.7L, Hematocrit 30L, Mean Corpuscular Volume 87, Mean Corpuscular Hemoglobin 28, Mean Corpuscular Hemoglobin Concent 33, Red Cell Distribution Width 13.9, Platelet Count 283, Mean Platelet Volume 11.1H, Sodium Level 140, Potassium Level 3.5L, Chloride Level 112H, Carbon Dioxide Level 18L, Anion Gap 10, Blood Urea Nitrogen 3L, Creatinine 0.67, Estimat Glomerular Filtration Rate > 60, BUN/Creatinine Ratio 4, Glucose Level 84, Calcium Level 7.6L, Corrected Calcium 8.2L, Magnesium Level 2.5H, Total Bilirubin 0.2, Aspartate Amino Transf (AST/SGOT) 57H, Alanine Aminotransferase (ALT/SGPT) 57H, Alkaline Phosphatase 84, C-Reactive Protein High Sensitivity 23.71H, Total Protein 5.7L, Albumin 3.3 Microbiology 07/13/19 C. difficile GDH Antigen & Toxins - Final, Resulted 07/13/19 Stool Culture, Resulted Pending 07/13/19 Urine Culture - Final, Complete 3 or more isolates 07/13/19 Blood Culture - Preliminary, Resulted No growth 07/13/19 Influenza Types A,B Antigen (JAGJIT) - Final, Complete ECG Impression ECG Initial ECG Rhythm: S.Tach A/P-Cardiology Assessment/Admission Diagnosis Gastroenteritis, C. difficile, Sinus tachycardia, Hypertension Plan Gastroenteritis, IV antibiotics. Defer to the primary team. C. difficile, Sinus tachycardia, CT scan showed no PE. Could be secondary to dehydration. Hypertension, on lisinopril and beta lucas lisinopril was stopped due to persistent cough. Echocardiogram Thank you for your consultation. Please call me if you have any questions. Yo Tsai MD, FACP, FACC, FSCAI, FHRS, CCDS Interventional Cardiology Cardiac Electrophysiology Vascular Medicine and Endovascular Interventions Clinical Quality Measures DVT/VTE Risk/Contraindication: Risk Factor Score Per Nursin RFS Level Per Nursing on Admit: 4+=Very High Miguel Ángel TSAI MD Jul 14, 2019 16:49
[2019-07-14 20:00] VITALS: BP 117/79
[2019-07-14] MEDS: FAMOTIDINE 20 MG (PEPCID) TABLET PO SCH (20:25)
[2019-07-15] VITALS (8 sets, daily range): BP systolic 118–164; BP diastolic 75–102
[2019-07-15] MEDS: PROMETHAZINE/ CODEINE SYRUP 5 ML UDC PO PRN (00:14)
[2019-07-15] MEDS: VANCOMYCIN 50 MG/ML ORAL SOLN 150 ML PO SCH ×4 (04:10→21:43)
[2019-07-15 04:12] LABS: HEMOGLOBIN 9.7 G/DL (11.5-16.0); MEAN PLATELET VOLUME 11.1 FL (7.4-10.4); RED CELL DISTRIBUTION WIDTH 13.9 % (10.0-14.5); WHITE BLOOD COUNT 14.9 10^3/uL (4.3-11.0)
[2019-07-15] MEDS: NS IV 1000 ML 1,000 ML IV SCH ×3 (04:12→17:49)
[2019-07-15 05:01] LABS: ALANINE AMINOTRANSFERASE 57 U/L (0-55); ALBUMIN 3.3 GM/DL (3.2-4.5); ALKALINE PHOSPHATASE 84 U/L (40-136); BILIRUBIN,TOTAL 0.2 MG/DL (0.1-1.0); BUN/CREATININE RATIO 4; CALCIUM 7.6 MG/DL (8.5-10.1); CARBON DIOXIDE 18 MMOL/L (21-32); CHLORIDE 112 MMOL/L (98-107); CREATININE SERUM 0.67 MG/DL (0.60-1.30); GFR ESTIMATED > 60; GLUCOSE 84 MG/DL (70-105); MAGNESIUM 2.5 MG/DL (1.6-2.4); POTASSIUM 3.5 MMOL/L (3.6-5.0); SODIUM 140 MMOL/L (135-145); TOTAL PROTEIN 5.7 GM/DL (6.4-8.2)
[2019-07-15] MEDS: IBUPROFEN 600 MG (MOTRIN) TAB PO PRN ×2 (05:26→16:27)
[2019-07-15] MEDS: PIPERACILLIN/TAZO 4.5 GM/NS 100 ML IV SCH ×2 (05:29)
--- NOTE | 2019-07-15 08:34 | Diagnostic Imaging Report ---
INDICATION: Cough. Time of exam 7:53 AM Correlation is made with prior chest from 06/27/2019. The heart size is stable. The lungs appear to be fairly clear. No significant infiltrate is detected. There is no effusion or pneumothorax. IMPRESSION: No acute cardiopulmonary process is detected. Dictated by: Dictated on workstation # [id number]
--- NOTE | 2019-07-15 08:38 | Progress Note ---
Subjective Date Seen by a Provider: Jul 15, 2019 Time Seen by a Provider: 08:20 Subjective/Events-last exam RADHA IS A 49 Y/O FEMALE HOSPITALIZED FOR SUSPECTED UTI AND DIARRHEA - UA IS NEGATIVE AND CDIFF IS POSITIVE. SHE STATES TH AT SHE IS FEELING BETTER TODAY. SHE STATES THAT HER DIARRHEA HAS IMPROVED. SHE STATES THAT SHE IS WANTING HER IV FLUIDS DECREASED BECAUSE SHE IS HAVING SWELLING OF HER HANDS AND FEET. SHE STATES THAT HER COUGH HAS IMPROVED WELL. Review of Systems General: Fatigue; No Malaise HEENT: No Visual Changes Pulmonary: No Dyspnea, No Cough Cardiovascular: No: Chest Pain, Palpitations Gastrointestinal: Abdominal Pain; No: Nausea Genitourinary: No Dysuria Neurological: No: Weakness, Confusion Focused Exam Lactate Level 07/13/19 14:00: Lactic Acid Level 0.92 Objective Exam Last Set of Vital Signs Vital Signs Date Time Temp Pulse Resp B/P (MAP) Pulse Ox O2 Delivery O2 Flow Rate FiO2 07/15/19 04:00 36.8 92 18 118/75 (89) 97 Room Air Capillary Refill : Less Than 3 Seconds I&O Intake and Output0 07/15/19 00:00 Intake Total 3260 ml Output Total 4000 ml Balance -740 ml Intake Oral 1250 ml IV Total 2010 ml Output Urine Total 4000 ml # Voids 2 # Bowel Movements 3 General: Alert, Oriented X3, Cooperative, No Acute Distress HEENT: Atraumatic, PERRLA Neck: Supple Lungs: Clear to Auscultation Heart: Regular Rate Abdomen: Normal Bowel Sounds, Soft (TTP UPPER ABDOMEN) Skin: No Rashes Neuro: Cranial Nerves 3-12 NL Psych/Mental Status: Mental Status NL, Mood NL Results Lab Laboratory Tests 07/15/19 03:37: White Blood Count 14.9H, Red Blood Count 3.44L, Hemoglobin 9.7L, Hematocrit 30L, Mean Corpuscular Volume 87, Mean Corpuscular Hemoglobin 28, Mean Corpuscular Hemoglobin Concent 33, Red Cell Distribution Width 13.9, Platelet Count 283, Mean Platelet Volume 11.1H, Sodium Level 140, Potassium Level 3.5L, Chloride Level 112H, Carbon Dioxide Level 18L, Anion Gap 10, Blood Urea Nitrogen 3L, Creatinine 0.67, Estimat Glomerular Filtration Rate > 60, BUN/Creatinine Ratio 4, Glucose Level 84, Calcium Level 7.6L, Corrected Calcium 8.2L, Magnesium Level 2.5H, Total Bilirubin 0.2, Aspartate Amino Transf (AST/SGOT) 57H, Alanine Aminotransferase (ALT/SGPT) 57H, Alkaline Phosphatase 84, C-Reactive Protein High Sensitivity 23.71H, Total Protein 5.7L, Albumin 3.3 Microbiology 07/13/19 C. difficile GDH Antigen & Toxins - Final, Resulted 07/13/19 Stool Culture, Resulted Pending 07/13/19 Blood Culture - Preliminary, Resulted No growth 07/13/19 Influenza Types A,B Antigen (JAGJIT) - Final, Complete Assessment/Plan Assessment/Plan Assess & Plan/Chief Complaint URINARY TRACT INFECTION LEUKOCYTOSIS DIARRHEA TACHYCARDIA HYPOKALEMIA HYPOMAGNESEMIA IRREGULAR CT SCAN OF LIVER INTERMITTENT HYPERTENSION COUGH URINARY TRACT INFECTION - STOPPED ZOSYN - THE URINE IS NEGATIVE FOR INFECTION LEUKOCYTOSIS - IMPROVED - IT IS DUE TO HER ACUTE CDIFF INFECTION DIARRHEA - CDIFF POSITIVE - IV ANTIBIOTICS STOPPED AND ORAL VANCOMYCIN WAS INITIATED YESTERDAY - SHE IS FEELING BETTER - WILL SEND RADHA HOME WITH THE BOTTLE OF LIQUID VANCOMYCIN FOR HOME USE. I HAVE ORDERED FOR THE BOTTLE TO BE RELABELED FOR HOME USE. TACHYCARDIA - MONITOR HEART RATE - SHOULD IMPROVE WITH HYDRATION - PT HAS PRN METOPROLOL IV HYPOKALEMIA AND HYPOMAGNESEMIA - REPLACE PER PROTOCOL IRREGULAR CT SCAN OF LIVER - NEGATIVE HEPATIC ULTRASOUND - HER LFT'S WERE ELEVATED THIS MORNING - WE WILL REPEAT LABS TOMORROW, I SUSPECT IT IS ELEVATED DUE TO HER SEVERE GI INFLAMMATION FROM THE CDIFF INFECTION. HYPERTENSION - INTERMITTENT - CHECKED RENAL ARTERY DOPPLERS TO SEE IF THERE IS ANY EVIDENCE OF RENAL ARTERY STENOSIS - IT WAS NEGATIVE - - APPRECIATE CARDIOLOGY INPUT COUGH - CHECK MYCOPLASMA ANTIBODIES - STILL PENDING - STARTED PHENERGAN WITH CODEINE COUGH SYRUP - IMPROVED ANTICIPATE RADHA WILL BE IN THE HOSPITAL FOR AT LEAST ANOTHER 24 HOURS WE MONITOR HER LABS ON CURRENT REGIMEN AND MAKE CHANGES NEEDED BASED ON OUR TESTING. Clinical Quality Measures Admission Status Admission Dx URINARY TRACT INFECTION LEUKOCYTOSIS DIARRHEA TACHYCARDIA HYPOKALEMIA HYPOMAGNESEMIA IRREGULAR CT SCAN OF LIVER INTERMITTENT HYPERTENSION DVT/VTE Risk/Contraindication: Risk Factor Score Per Nursin RFS Level Per Nursing on Admit: 4+=Very High ANDREA HUSSEIN MD Jul 15, 2019 08:38
[2019-07-15] MEDS ORDERED: RELABEL FOR HOME USE MC SCH (08:45)
[2019-07-15] MEDS ORDERED: Promethazine/Codeine PO (08:46)
[2019-07-15] MEDS ORDERED: METO-387 PO (08:46)
[2019-07-15] MEDS ORDERED: VANC50SO PO (08:46)
--- NOTE | 2019-07-15 08:49 | Discharge Inst-Complex ---
PDI Reconcile Patient Problems Problems Reviewed?: Yes Med Rec & Follow Up Appt. New Medications: [Promethazine/Codeine] () 5 ML SYRP 5 ML PO Q4H PRN for COUGH, #8 OZ Vancomycin HCl (Firvanq) 50 Mg/1 Ml Soln.recon 125 MG PO Q6H, #1 EACH 2.5mL q 6 hours x 12 more days (until bottle is empty) Changed Medications: Metoprolol Succinate (Metoprolol Succinate) 25 Mg Tab.er.24h 25 MG PO DAILY, #30 TAB 4 Refills (Changed from: Refills: ) hold if sbp is less than or equal to 120 Continued Medications: Famotidine (Pepcid) 20 Mg Tablet 20 MG PO BID, TAB Levothyroxine Sodium (Levothyroxine Sodium) 88 Mcg Tablet 88 MCG PO DAILY, TAB Norgestimate-Ethinyl Estradiol (Tri-Sprintec Tablet) 1 Each Tablet 1 TAB PO DAILY, TAB Discontinued Medications: Lisinopril (Lisinopril) 20 Mg Tablet 20 MG PO DAILY, TAB Prescription: Other (i called rx for promethazine to pharmacy in [place] , the vancomycin is to be relabeled by our pharmacy and GIVEN to the patient) Patient Instructions: if your sbp is less than or equal to 120, do NOT take the metoprolol, if you have any questions, call the office or have dr. ventura paged. Activity, Diet and PDI Resume Normal Activity: Yes Discharge Diet: Regular Diet Diet for 24 Hours: No Alcohol, No [place] Foods, No Spicy Foods Diet After 24 Hours: Clear Liquid if Nauseous Drink 6-8 Glasses of Fluid/Day: Yes Driving Instructions: You May Drive May Return to Work/School/Day: May Return to Work (stay off of work until diarrhea has COMPLETELY resolved for at least 48 hours) Return to [facility] For: any concern for worsening illness Symptoms to Reoprt to DrDayanna: Fever Over 101 Degrees F, Pain/Pressure in Chest, Diarrhea(Persistant), Questions/Concerns For Problems or Questions: Contact Your Physician ANDREA VENTURA MD Jul 15, 2019 08:49
[2019-07-15] MEDS ORDERED: norgestimate-ethinyl estradioL 1 EACH TABLET PO SCH (09:00)
[2019-07-15] MEDS ORDERED: lisINopril 20 MG (PRINIVIL) TABLET PO SCH (09:00)
[2019-07-15] MEDS: FAMOTIDINE 20 MG (PEPCID) TABLET PO SCH ×2 (09:49→20:43)
[2019-07-15] MEDS: LEVOTHYROXINE 88 MCG (LEVOTHORID) TAB PO SCH (09:50)
[2019-07-15] MEDS: meTOprolol 5 MG/5 ML (LOPRESSOR) VIAL IV PRN (10:00)
[2019-07-15] MEDS: ACETAMINOPHEN 325 MG TABLET PO PRN (11:16)
[2019-07-15] MEDS: ENOXAPARIN 40 MG/0.4 ML (LOVENOX) SYR SC SCH (16:28)
--- NOTE | 2019-07-15 16:40 | Cardiology Progress Note ---
Cardiology SOAP Progress Note Subjective: No cardiac complaints. Objective: I&O/Vital Signs 07/15/19 07/15/19 07/15/19 07/15/19 06:42 08:00 08:00 09:00 Pulse 104 87 Resp 18 B/P (MAP) 156/102 (120) Pulse Ox 96 O2 Delivery Room Air Room Air Room Air 07/15/19 07/15/19 07/15/19 07/15/19 11:21 12:00 12:00 12:40 Temp 36.6 36.5 Pulse 79 60 92 Resp 19 B/P (MAP) 151/98 (115) 164/93 (116) Pulse Ox 95 O2 Delivery Room Air Room Air Room Air 07/15/19 13:55 B/P (MAP) 149/89 (109) 07/15/19 00:00 Intake Total 870 ml Output Total 1900 ml Balance -1030 ml Constitutional: appears stated age; No apparent distress; well-developed, well- nourished Respiratory: chest is bilaterally symmetric, lungs clear to auscultation Cardiovascular: regular rate-rhythm, tachycardia, S1 and S2 Gastrointestional: soft, audible bowel sounds; No spleenomegaly Extremities: normal range of motion, non-tender, normal inspection; No clubbing, No cyanosis; no lower extremity edema bilateral; No significant edema Neurologic/Psychiatric: no motor/sensory deficits, alert, normal mood/affect, oriented x 3, power is 5/5 both on sides Skin: normal color; No rash, No ulcerations Results/Procedures: Labs Laboratory Tests 07/15/19 03:37: White Blood Count 14.9H, Red Blood Count 3.44L, Hemoglobin 9.7L, Hematocrit 30L, Mean Corpuscular Volume 87, Mean Corpuscular Hemoglobin 28, Mean Corpuscular Hemoglobin Concent 33, Red Cell Distribution Width 13.9, Platelet Count 283, Mean Platelet Volume 11.1H, Sodium Level 140, Potassium Level 3.5L, Chloride Level 112H, Carbon Dioxide Level 18L, Anion Gap 10, Blood Urea Nitrogen 3L, Creatinine 0.67, Estimat Glomerular Filtration Rate > 60, BUN/Creatinine Ratio 4, Glucose Level 84, Calcium Level 7.6L, Corrected Calcium 8.2L, Magnesium Level 2.5H, Total Bilirubin 0.2, Aspartate Amino Transf (AST/SGOT) 57H, Alanine Aminotransferase (ALT/SGPT) 57H, Alkaline Phosphatase 84, C-Reactive Protein High Sensitivity 23.71H, Total Protein 5.7L, Albumin 3.3 Microbiology 07/13/19 C. difficile GDH Antigen & Toxins - Final, Resulted 07/13/19 Stool Culture, Resulted Pending 07/13/19 Urine Culture - Final, Complete 3 or more isolates 07/13/19 Blood Culture - Preliminary, Resulted No growth 07/13/19 Influenza Types A,B Antigen (JGAJIT) - Final, Complete A/P: Assessment/Dx: Gastroenteritis, C. difficile, Sinus tachycardia, Hypertension Plan: Gastroenteritis, IV antibiotics. Defer to the primary team. C. difficile, Sinus tachycardia, CT scan showed no PE. Could be secondary to dehydration. Hypertension, on lisinopril and beta lucas lisinopril was stopped due to persistent cough. Start amlodipine. Echocardiogram done 07/14/2019 showed normal LV size and function. Thank you for your consultation. Please call me if you have any questions. Yo Tsai MD, FACP, FACC, FSCAI, FHRS, CCDS Interventional Cardiology Cardiac Electrophysiology Vascular Medicine and Endovascular Interventions Focused Exam Lactate Level 07/13/19 14:00: Lactic Acid Level 0.92 Miguel Ángel TSAI MD Jul 15, 2019 16:40
[2019-07-15] MEDS: amLODIPine 5 MG (NORVASC) TAB PO SCH (18:16)
[2019-07-16] VITALS: BP 126/84
[2019-07-16 04:00] VITALS: BP 153/94
[2019-07-16] MEDS: ACETAMINOPHEN 325 MG TABLET PO PRN (04:02)
[2019-07-16] MEDS: VANCOMYCIN 50 MG/ML ORAL SOLN 150 ML PO SCH ×2 (04:03→09:20)
[2019-07-16] MEDS: meTOprolol 5 MG/5 ML (LOPRESSOR) VIAL IV PRN (04:05)
[2019-07-16 04:14] LABS: BASOPHILS % (AUTO) 0 % (0-10); EOSINOPHILS # (AUTO) 0.6 10^3/uL (0.0-0.3); EOSINOPHILS % (AUTO) 6 % (0-10); HEMATOCRIT 37 % (35-52); LYMPHOCYTES # (AUTO) 2.7 X 10^3 (1.0-4.0); LYMPHOCYTES % (AUTO) 25 % (12-44); MEAN CORPUSCULAR HEMOGLOBIN 28 PG (25-34); MEAN CORPUSCULAR HGB CONC 33 G/DL (32-36); MEAN CORPUSCULAR VOLUME 86 FL (80-99); MEAN PLATELET VOLUME 10.7 FL (7.4-10.4); MONOCYTES # (AUTO) 0.6 X 10^3 (0.0-1.0); MONOCYTES % (AUTO) 6 % (0-12); NEUTROPHILS # (AUTO) 6.8 X 10^3 (1.8-7.8); NEUTROPHILS % (AUTO) 63 % (42-75); PLATELET COUNT 350 10^3/uL (130-400); RED CELL DISTRIBUTION WIDTH 13.7 % (10.0-14.5); WHITE BLOOD COUNT 10.7 10^3/uL (4.3-11.0)
[2019-07-16 04:21] VITALS: BP 142/92
[2019-07-16 04:34] LABS: ALANINE AMINOTRANSFERASE 93 U/L (0-55); ALKALINE PHOSPHATASE 94 U/L (40-136); BILIRUBIN,TOTAL 0.2 MG/DL (0.1-1.0); BUN/CREATININE RATIO 6; CALCIUM 8.8 MG/DL (8.5-10.1); CARBON DIOXIDE 21 MMOL/L (21-32); CHLORIDE 109 MMOL/L (98-107); CREATININE SERUM 0.71 MG/DL (0.60-1.30); GFR ESTIMATED > 60; GLUCOSE 85 MG/DL (70-105); POTASSIUM 3.7 MMOL/L (3.6-5.0); SODIUM 141 MMOL/L (135-145); TOTAL PROTEIN 7.2 GM/DL (6.4-8.2)
[2019-07-16 08:00] VITALS: BP 138/81
[2019-07-16] MEDS ORDERED: AMLO5TAB9 PO (08:36)
[2019-07-16] MEDS ORDERED: VANCOMYCIN 50 MG/ML ORAL SOLN 150 ML PO SCH (09:00)
[2019-07-16] MEDS: LEVOTHYROXINE 88 MCG (LEVOTHORID) TAB PO SCH (09:19)
[2019-07-16] MEDS: FAMOTIDINE 20 MG (PEPCID) TABLET PO SCH (09:20)
[2019-07-16] MEDS: amLODIPine 5 MG (NORVASC) TAB PO SCH (09:20)
[2019-07-16 10:00] VITALS: BP 138/81
--- NOTE | 2019-07-16 10:00 | NUR ---
RADHA STEELE demonstrates understanding of discharge instructions and accurately returns instructions upon questioning. Copy of Post-Discharge Instructions given to PT. RADHA STEELE IS able to manage continuing needs after discharge. Patients belongings returned to PT. Patient discharged from [facility] on 07/16/19 at 1000. RADHA STEELE left floor via AMBULATORY, accompanied by STAFF AND AUTO PER .
--- NOTE | 2019-07-16 13:27 | Discharge Summary ---
Discharge Summary Hospital Course Was the Problem List Reviewed?: Yes Hospital Course Date of Admission: Jul 13, 2019 at 15:27 Admission Diagnosis : diarrhea Family Physician/Provider: Andrea Torres MD Date of Discharge: 07/16/19 Discharge Diagnosis: C. difficile infection Hospital Course: Delores Nixon is a 49-year-old female who presented with diarrhea and was found to have a C. difficile infection. There is initially concerned that her leukocytosis, tachycardia, and abdominal pain were due to a urinary tract infection, but a urinalysis was performed and this was ruled out. C. difficile testing was positive and she was started on oral vancomycin. After starting therapy her diarrhea and abdominal pain improved. She will continue oral vanco mycin for a ten-day course. She will follow up with Dr. Torres in her clinic. Labs and Pending Lab Test: Laboratory Tests 07/16/19 04:04: White Blood Count 10.7, Red Blood Count 4.26L, Hemoglobin 12.0#, Hematocrit 37, Mean Corpuscular Volume 86, Mean Corpuscular Hemoglobin 28, Mean Corpuscular Hemoglobin Concent 33, Red Cell Distribution Width 13.7, Platelet Count 350, Mean Platelet Volume 10.7H, Neutrophils (%) (Auto) 63, Lymphocytes (%) (Auto) 25, Monocytes (%) (Auto) 6, Eosinophils (%) (Auto) 6, Basophils (%) (Auto) 0, Neutrophils # (Auto) 6.8, Lymphocytes # (Auto) 2.7, Monocytes # (Auto) 0.6, Eosinophils # (Auto) 0.6H, Basophils # (Auto) 0.0, Sodium Level 141, Potassium Level 3.7, Chloride Level 109H, Carbon Dioxide Level 21, Anion Gap 11, Blood Urea Nitrogen 4L, Creatinine 0.71, Estimat Glomerular Filtration Rate > 60, BUN/Creatinine Ratio 6, Glucose Level 85, Calcium Level 8.8, Corrected Calcium 8.8, Total Bilirubin 0.2, Aspartate Amino Transf (AST/SGOT) 49H, Alanine Aminotransferase (ALT/SGPT) 93H, Alkaline Phosphatase 94, C-Reactive Protein High Sensitivity 13.50H, Total Protein 7.2, Albumin 4.0 Microbiology 07/13/19 C. difficile GDH Antigen & Toxins - Final, Resulted 07/13/19 Stool Culture - Preliminary, Resulted No growth 07/13/19 Urine Culture - Final, Complete 3 or more isolates 07/13/19 Blood Culture - Preliminary, Resulted No growth 07/13/19 Influenza Types A,B Antigen (JAGJIT) - Final, Complete Home Meds Active Amlodipine Besylate 5 Mg Tablet 5 Mg PO DAILY 90 Days [Promethazine/Codeine] 5 ML Syrp 5 Ml PO Q4H PRN Firvanq (Vancomycin HCl) 50 Mg/1 Ml Soln.recon 125 Mg PO Q6H 2.5mL q 6 hours x 12 more days (until bottle is empty) Metoprolol Succinate 25 Mg Tab.er.24h 25 Mg PO DAILY hold if sbp is less than or equal to 120 Reported Pepcid (Famotidine) 20 Mg Tablet 20 Mg PO BID Tri-Sprintec Tablet (Norgestimate-Ethinyl Estradiol) 1 Each Tablet 1 Tab PO DAILY Levothyroxine Sodium 88 Mcg Tablet 88 Mcg PO DAILY Assessment/Pt Instructions Take medications as prescribed. Complete entire course of antibiotics even if you're feeling better. Return with worsening diarrhea, abdominal pain, fever, or if you feel like you're getting worse. Discharge Planning: <30 minutes discharge planning Discharge Instructions Discharge Diet: Regular Diet Activity as Tolerated: Yes Discharge Physical Examination Vital Signs Vital Signs Date Time Temp Pulse Resp B/P (MAP) Pulse Ox O2 Delivery O2 Flow Rate FiO2 07/16/19 12:00 Room Air 07/16/19 10:00 37.1 105 18 138/81 94 General Appearance: No Apparent Distress, WD/WN, Anxious HEENT: PERRL/EOMI, Pharynx Normal Respiratory: Lungs Clear, Normal Breath Sounds, No Respiratory Distress Cardiovascular: Regular Rate, Rhythm, No Edema, No Murmur Gastrointestinal: Normal Bowel Sounds, Non Tender, Soft Extremity: Normal Inspection, Non Tender, No Pedal Edema Skin: Normal Color, Warm/Dry Neurologic/Psychiatric: Alert, Oriented x3, No Motor/Sensory Deficits, Normal Mood/Affect Allergies: Coded Allergies: No Known Drug Allergies (Unverified , 06/27/19) Copy Copies To 1: ANDREA TORRES MD Discharge Summary Date of Admission Jul 13, 2019 at 15:27 Date of Discharge Discharge Date: Jul 16, 2019 Discharge Time: 0900 Admission Diagnosis diarrhea Discharge Diagnosis C. difficile diarrhea (1) Clostridium difficile diarrhea Clinical Quality Measures DVT/VTE Risk/Contraindication: Risk Factor Score Per Nursin RFS Level Per Nursing on Admit: 4+=Very High PETROS HSERWOOD MD Jul 16, 2019 13:27
--- NOTE | 2019-07-18 10:45 | Physician Query Clarification ---
PQ-Further Specificity Admission/Discharge Admission Date: Jul 13, 2019 at 15:27 Discharge Date: Jul 16, 2019 at 10:00 The medical record reflects the following clinical scenario: History/Risk Factors: Leukocytosis, Tachycardia Clinical Findings: UA ruled out UTI, Cdiff testing positive, T 37.8, P 139, R 18, WBC 19.9, Lactic acid 0.92 Treatment: IV Zosyn, oral Vancomycin Question: Can you further specify if sepsis is a clinically valid diagnosis per the clinical indicators above? Sepsis was documented in the (ED note with no further documentation in the medical record Please document a response in the Progress Notes or Discharge Summary. 1. [list the #1 diagnosis/condition choice] 2. [list the diagnosis/condition already documented] 3. Other, with explanation of the clinical findings. 4. Clinically undetermined, no explanation for the clinical findings. PHYSICIAN RESPONSE Can you specify per above: Other, explanation/clinical finding Explanation/Clinical Findings Sepsis due to c diff infection Please remember a lack of response to the above will prompt a phone page by CDI/Coding staff. In responding to this query, please exercise your independent professional j udgment. The purpose of this communication is to more accurately reflect the complexity of your patients condition. The fact that a question is asked does not imply that any particular answer is desired or expected. Thank you for your timely response to this clarification. Requestors name: Neal THIS PHYSICIAN QUERY FORM IS A PERMANENT PART OF THE MEDICAL RECORD TERESSA LEARY Jul 18, 2019 10:45 PETROS SHERWOOD MD Jul 29, 2019 15:24
== END 2019-07-16 10:00 | disposition home or self-care (01) | DRG 872 ==
LOC: EDUNIT# 13:39 → ER 13:41 → CSD 15:27
PROVIDERS: ADMIT Internal Medicine; ATTEND Internal Medicine
DX: A41.89 Other specified sepsis (principal); A04.72 Enterocolitis due to Clostridium difficile, not specified as recurrent; I10 Essential (primary) hypertension; E86.0 Dehydration; E87.6 Hypokalemia; F32.9 Major depressive disorder, single episode, unspecified; E83.42 Hypomagnesemia; F41.9 Anxiety disorder, unspecified; Z87.891 Personal history of nicotine dependence
CPT/HCPCS: 36415; 71046; 71275; 76705; 76770; 80053; 81000; 83605; 83735; 83880; 84439; 84443; 84484; 84703; 85007; 85025; 85027; 85652; 86141; 86738; 87015; 87040; 87045; 87046; 87088; 87324; 87449; 87804; 87899; 93005; 93306; 93975; 96361; 96365; 96375

== ENCOUNTER → 2019-12-21 | Outpatient (CLI) | payer OTHER ==
[~2019-12-21] MED LIST changes: +AMLO5TAB9 PO; +FAMO-119 PO; +MTP25TSR PO; +Promethazine/Codeine PO; +VANC50SO PO
--- NOTE | 2019-12-21 20:42 | Diagnostic Imaging Report ---
INDICATION: Routine screening. COMPARISON: Comparison is made with prior mammogram from 10/27/2018 and 10/26/2017. EXAMINATION: 2D and 3D bilateral screening mammography was performed with CAD. The current study was also evaluated with a Computer Aided Detection (CAD) system. FINDINGS: Both breasts remain heterogeneously dense, limiting the sensitivity of mammography. The parenchymal pattern appears to be stable. No dominant mass or malignant appearing microcalcifications are seen. Axillae are unremarkable. IMPRESSION: No mammographic features suspicious for malignancy are identified. ACR BI-RADS Category 1: Negative. Result letter will be mailed to the patient. Note: At least 10% of breast cancer is not imaged by mammography. Dictated on workstation # [id number]
== END ==
LOC: RAD 13:38
PROVIDERS: ATTEND Nurse Practitioner Family
DX: Z12.31 Encounter for screening mammogram for malignant neoplasm of breast (principal); R91.1 Solitary pulmonary nodule
CPT/HCPCS: 77063; 77067

== ENCOUNTER → 2020-07-03 | Outpatient (CLI) | payer OTHER ==
[~2020-07-03] MED LIST changes: +AMLO-250 PO; -AMLO5TAB9 PO
--- NOTE | 2020-07-03 09:06 | Diagnostic Imaging Report ---
PROCEDURE: CT chest without contrast. TECHNIQUE: Multiple contiguous axial images were obtained through the chest without the use of intravenous contrast. Auto Exposure Controls were utilized during the CT exam to meet ALARA standards for radiation dose reduction. INDICATION: Pulmonary nodule The previous CT chest exam of 12/21/2019 noted a stable 4 mm nodule in the right lung base. That finding is again evident and does not appear changed significantly in size or appearance (image 76 of 165). The previous study also revealed a small 3 mm nodule in the right apex. That finding seem stable as well (image 31 of 165. In addition to the nodular densities, the previous exam noted irregular nodular foci in the right suprahilar region as well as the lateral segment of the right middle lobe. There is also small area of increased density near the right hemidiaphragm. On this study those areas of abnormal parenchymal density have essentially resolved. I suspect that they were related to mild pneumonia/atelectasis. The left lung remains generally clear. There is no sign of failure, pneumonia or pleural effusion to indicate an acute abnormality. The heart size is stable and within normal limits. There are no coronary calcifications noted. The aorta is not abnormally dilated. There is no obvious mediastinal or hilar adenopathy. The thyroid gland is not particularly well visualized but seems similar to the prior study. There is no obvious breast mass. The sections through the upper abdomen failed to show any sign of an acute abnormality.. The bone windows show no sign of a fracture or of a destructive lesion. IMPRESSION:. 1. The small nodules in the right lung seen previously appear stable. I do suspect that they are benign. A followup CT chest exam in one year would be recommended for continued evaluation. 2. The abnormal parenchymal densities involving the right lung seen on the prior study have resolved. Most likely they were secondary to small foci of pneumonia/atelectasis. 3. There is no acute cardiopulmonary abnormality. Dictated by: Dictated on workstation # [id number]
== END ==
LOC: RAD FS 07:47
PROVIDERS: ATTEND Nurse Practitioner Family
DX: R91.8 Other nonspecific abnormal finding of lung field (principal)
CPT/HCPCS: 71250

== ENCOUNTER → 2021-01-17 | Outpatient (CLI) | payer OTHER ==
[~2021-01-17] MED LIST changes: -LISI-552 PO; +LISI20TA26 PO
--- NOTE | 2021-01-17 08:51 | Diagnostic Imaging Report ---
Indication: Routine screening. Comparison is made with prior mammogram from 12/21/2019 and 10/27/2018. 2-D and 3-D bilateral screening mammography was performed with CAD. Both breasts are heterogeneously dense, limiting the sensitivity of mammography. No dominant mass or malignant appearing microcalcifications are seen. Axillae are unremarkable. IMPRESSION: BI-RADS Category 1 No mammographic features suspicious for malignancy are identified. ACR BI-RADS Category 1: Negative. Result letter will be mailed to the patient. Note: At least 10% of breast cancer is not imaged by mammography. Dictated by: Dictated on workstation # [id number]
== END ==
LOC: RAD 08:00
PROVIDERS: ATTEND Nurse Practitioner Family
DX: Z12.31 Encounter for screening mammogram for malignant neoplasm of breast (principal)
CPT/HCPCS: 77063; 77067

== ENCOUNTER → 2021-07-17 | Outpatient (CLI) | payer OTHER ==
--- NOTE | 2021-07-17 09:48 | Diagnostic Imaging Report ---
PROCEDURE: CT chest without contrast. TECHNIQUE: Multiple contiguous axial images were obtained through the chest without the use of intravenous contrast. Auto Exposure Controls were utilized during the CT exam to meet ALARA standards for radiation dose reduction. INDICATION: Pulmonary nodule COMPARISON: 07/03/2020 and 07/13/2019 FINDINGS: No significant adenopathy within the chest. No aneurysmal dilatation of the thoracic aorta. The heart is within normal limits in size. No pericardial effusion. No pleural effusion. The trachea is patent. No pneumothorax. Stable 2 mm right upper lobe pulmonary nodule, unchanged since June 2019. A 0.4 cm right lower lobe pulmonary nodule, unchanged since June 2019. No new suspicious pulmonary nodule. The lungs are otherwise clear. The visualized upper abdomen is unremarkable. No acute osseous abnormality. IMPRESSION: Stable small sub-4 mm right-sided pulmonary nodules which are unchanged since June 2019, and are benign. No new suspicious pulmonary nodule or opacity. No acute abnormality within the chest. Dictated by: Dictated on workstation # [id number]
== END ==
LOC: RAD FS 08:55
PROVIDERS: ATTEND Nurse Practitioner Family
DX: R91.8 Other nonspecific abnormal finding of lung field (principal)
CPT/HCPCS: 71250

== ENCOUNTER → 2022-01-30 | Outpatient (CLI) | payer OTHER ==
[~2022-01-30] MED LIST changes: +OMEP20TA56 PO; -OMEP20TA7 PO
--- NOTE | 2022-01-30 11:47 | Diagnostic Imaging Report ---
Indication: Routine screening. Comparison is made with prior mammogram 01/17/2021 and 12/21/2019. 2-D and 3-D bilateral screening mammography was performed with CAD. CAD is utilized. The current study was also evaluated with a Computer Aided Detection (CAD) system. Both breasts are heterogeneously dense, limiting the sensitivity of mammography. The parenchymal pattern is stable. No mass or malignant-appearing microcalcifications are seen. Axillae are unremarkable. IMPRESSION: BI-RADS Category 1 No mammographic features suspicious for malignancy are identified. ACR BI-RADS Category 1: Negative. Result letter will be mailed to the patient. Note: At least 10% of breast cancer is not imaged by mammography. Dictated by: Dictated on workstation # [id number]
== END ==
LOC: RAD 07:40
PROVIDERS: ATTEND Nurse Practitioner Family
DX: Z12.31 Encounter for screening mammogram for malignant neoplasm of breast (principal)
CPT/HCPCS: 77063; 77067

== ENCOUNTER → 2022-09-16 | Outpatient (CLI) | payer OTHER ==
--- NOTE | 2022-09-16 08:51 | Diagnostic Imaging Report ---
PROCEDURE: CT chest without contrast. TECHNIQUE: Multiple contiguous axial images were obtained through the chest without the use of intravenous contrast. Auto Exposure Controls were utilized during the CT exam to meet ALARA standards for radiation dose reduction. INDICATION: Pulmonary nodule COMPARISON: and 07/01/2020. FINDINGS: No significant adenopathy within chest. No aneurysmal dilatation of thoracic aorta. The heart is within normal limits in size. No pericardial effusion. No pleural effusion. No significant hiatal hernia. No pneumothorax. 0.4 cm right lower lobe pulmonary nodule is unchanged since 2019, series 3, image 57. No new pulmonary nodule. The lungs otherwise appear clear. The trachea is patent. The minimally visualized upper abdomen is unremarkable. No acute osseous abnormality. IMPRESSION: Stable 0.4 cm right lower lobe pulmonary nodule. Given stability since 2019, this is benign. No new pulmonary nodule or acute abnormality. Dictated by: Dictated on workstation # [id number]
== END ==
LOC: RAD 08:15
PROVIDERS: ATTEND Nurse Practitioner Family
DX: R91.1 Solitary pulmonary nodule (principal)
CPT/HCPCS: 71250

== ENCOUNTER → 2023-02-23 | Outpatient (CLI) | payer OTHER ==
--- NOTE | 2023-02-23 08:44 | Diagnostic Imaging Report ---
INDICATION: Routine screening. Comparison is made with prior mammogram from 01/30/2022 and 01/17/2021. 2-D and 3-D bilateral screening mammography was performed with CAD. Both breasts are heterogeneously dense, limiting the sensitivity of mammography. The overall parenchymal pattern is stable. No mass or malignant-appearing microcalcifications are seen. Axillae are unremarkable. IMPRESSION: No mammographic features suspicious for malignancy are identified. ACR BI-RADS Category 1: Negative. Result letter will be mailed to the patient. Note: At least 10% of breast cancer is not imaged by mammography. BI-RADS Category 1 Dictated by: Dictated on workstation # [id number]
== END ==
LOC: RAD 07:41
PROVIDERS: ATTEND Nurse Practitioner Family
DX: Z12.31 Encounter for screening mammogram for malignant neoplasm of breast (principal)
CPT/HCPCS: 77063; 77067